=== PATIENT | male | born 1945 | race Caucasian/White ===

== ENCOUNTER 2022-09-10 08:33 | Emergency (ER) | payer OTHER, SELFPAY ==
[2022-09-10] VITALS (7 sets, daily range): BP systolic 155–180; BP diastolic 78–105; PULSE 71–76; RESP 18; TEMP 36.4; O2SAT 94–96; BMI 28.7
--- NOTE | 2022-09-10 09:34 | CRLHL7_ITS ---
For Patients: As a result of the Century Cures Act, medical imaging exams and procedure reports are released immediately into your electronic medical record. You may view this report before your referring provider. If you have questions, please contact your health care provider. INDICATION: Abdominal distension. TECHNIQUE: CT abdomen and pelvis acquired with 90 mL Isovue 370 IV contrast. COMPARISON: Abdomen radiograph earlier same day dated 09/10/2022. FINDINGS: Lower chest: Motion artifact. 0.4 cm pulmonary nodule in the right lower lobe (series 3, image 9). No focal consolidation. Liver: Diffuse hepatic steatosis. Hepatomegaly. Too small to characterize hypodense hepatic lesions in the right lobe, likely benign in the absence of a known malignancy. Gallbladder and bile ducts: Small gallstone at the gallbladder neck. No biliary duct dilation. Pancreas: Unremarkable. Spleen: Splenomegaly, spleen measures up to 15 cm in cranial caudal dimension. Adrenal glands: Adreniform thickening of the left adrenal gland. Unremarkable appearance of the right adrenal gland. Kidneys: Kidneys enhance symmetrically. Too small to characterize hypodense bilateral renal lesions. There is symmetric bilateral mild hydronephrosis and hydroureter, without calculi identified in the collecting systems. Bilateral perinephric stranding is also present. Retroperitoneum: No lymphadenopathy. Bowel and mesentery: Bowel is not obstructed. Scattered colonic diverticulosis, without evidence of acute diverticulitis. Normal appendix. No significant ascites. No pneumoperitoneum. Bladder: Distended with urine. TURP defect is noted. Reproductive organs: Severe prostatomegaly. Pelvic lymph nodes: No lymphadenopathy. Vessels: Mild atherosclerotic calcifications. Abdominal wall: No acute abdominal wall abnormality. Bones: Multilevel degenerative changes of the spine. No suspicious/aggressive focal osseous lesion. IMPRESSION: 1. Splenomegaly, spleen measures up to 15 cm. 2. Hepatomegaly and diffuse hepatic steatosis. 3. Mild bilateral hydronephrosis and hydroureter, without calculi identified in the renal collecting systems. This is likely secondary to reflux uropathy. 4. Severe prostatomegaly, resulting in significant distention of the urinary bladder. Recommend correlation with serum PSA. 5. Additional incidental findings including cholelithiasis, and 0.4 cm pulmonary nodule in the right lower lobe. Consider optional follow up CT chest in 12 months, per Fleischner guidelines. Please note that all CT scans at this facility use dose modulation, iterative reconstruction, and/or weight-based dosing when appropriate to reduce radiation dose to as low as reasonably achievable. Dictated by Yajaira Moore MD @ 09/10/2022 12:48:16 PM (Electronically Signed)
--- NOTE | 2022-09-10 09:35 | CRLHL7_ITS ---
For Patients: As a result of the Century Cures Act, medical imaging exams and procedure reports are released immediately into your electronic medical record. You may view this report before your referring provider. If you have questions, please contact your health care provider. Indication: Abdomen pain Technique: Abdomen 1 view. Comparison: None. Findings: Bowel: Bowel pattern is normal. The amount of colonic stool is within normal limits. Other: No sign of free air. Possible splenomegaly. No suspicious calcifications. Osseous structures are unremarkable for age. Impression: No bowel obstruction. Possible abnormal spleen. CT recommended. Dictated by Jim Bear MD @ 09/10/2022 10:27:42 AM (Electronically Signed)
[2022-09-10] MEDS: ONDANSETRON 2 MG/ML inj 4 MG IVP (09:47)
[2022-09-10] MEDS: HYDROmorphone 0.5 mg/0.5 ml inj IVP (09:47)
--- NOTE | 2022-09-10 09:47 | ED.ABDPAIN ---
HPI - Abdominal Pain General Date Seen: 09/10/22 Chief Complaint: Abdominal Pain Stated Complaint: Possible bowel obstruction Time Seen by Provider: 09/10/22 09:04 Source: patient History of Present Illness HPI narrative: Patient is a 76-year-old male who presents for evaluation of abdominal pain which started abruptly at 1:00 a.m.. He says initially he had explosive diarrhea which he says was yellowish in color, denies any bloody stools or melanotic stools. Now he is not having any output from below. He denies passing any gas. He has had nausea but no vomiting. He notes significant abdominal distention. He is worried about possible bowel obstruction. He has never had any abdominal surgery. He has no history of prior bowel obstruction. He denies fevers or urinary symptoms. He has not had chest pain or difficulty breathing. Pain is severe and diffuse, perhaps worse on the right than the left. He has a history of diabetes and hypertension. He does not take any blood thinners. He does not smoke or drink. Here today with his Related Data Home Medications Medication Instructions Recorded Confirmed doxazosin 4 mg tablet mg 09/10/22 lisinopril 20 tab 09/10/22 mg-hydrochlorothiazide 25 mg tablet metformin 500 mg tablet,extended mg PO 09/10/22 release 24 hr omeprazole 20 mg capsule,delayed mg 09/10/22 release Allergies Allergy/AdvReac Type Severity Reaction Status Date / Time No Known Drug Allergies Allergy Verified 09/10/22 08:48 Review of Systems Status of ROS Reports: 10 or more systems reviewed and unremarkable except as noted in History and below PFSH PFS Social History Smoking Status: Never smoker Do you use any of these nicotine containing products: None How often do you have a drink containing alcohol: never AUDIT-C Alcohol total score: 0 Non-prescribed substance use: denies use Exam Narrative: Exam Narrative: Vital signs as noted above. In general, an alert, elderly male who appears to be in significant pain. Head: Normocephalic, atraumatic. Eyes: Pupils are equal reactive. Extraocular movements are full. Conjunctivae are normal. ENT: Mucous membranes are moist. Throat is normal. Neck: Supple without lymphadenopathy. Heart: Regular rate and rhythm. No murmur or rub. Lungs: Clear bilaterally. No increased work of breathing, crackles or wheezes. Abdomen: Distended, diffusely significantly tender although no guarding or rigidity. Bowel sounds are quiet. Extremities: Well perfused. No edema. No calf tenderness. Pulses intact. Neurologic: Patient is alert and oriented to person and place. Speech is fluent. Face is symmetric. Moves all extremities equally. Affect: Normal. Skin: Warm and dry. Well perfused. Const: Vital Signs, click to edit/add: Vital Signs - 24 hr 09/10/22 08:43 09/10/22 08:39 09/10/22 09:39 Temperature 97.5 F L 97.5 F L Pulse Rate Pulse Rate [Right Pulse Oximeter] 74 74 Respiratory Rate 18 18 Blood Pressure Blood Pressure [Ri ght Upper Arm] 180/105 H 180/105 H 176/104 H Pulse Oximetry 94 94 Oxygen Delivery Me thod Room Air Room Air 09/10/22 10:27 09/10/22 10:28 09/10/22 10:30 Temperature Pulse Rate 72 71 71 Pulse Rate [Right Pulse Oximeter] Respiratory Rate Blood Pressure 169/82 H Blood Pressure [Ri ght Upper Arm] Pulse Oximetry 95 96 96 Oxygen Delivery Me thod 09/10/22 10:31 Temperature Pulse Rate 76 Pulse Rate [Right Pulse Oximeter] Respiratory Rate Blood Pressure 155/78 H Blood Pressure [Ri ght Upper Arm] Pulse Oximetry 95 Oxygen Delivery Me thod Documenting provider has reviewed patient's vital signs: yes Course Course Hospital Course: Following my evaluation, an IV was placed and he was given 0.5 mg of Dilaudid as well as a L normal saline and 4 mg of Zofran. I did an initial flat and decubitus abdominal film primarily to make sure there is no evidence of free air and to see if there was evidence of bowel obstruction although without any history of prior abdominal surgery this was somewhat lower on my list unless he had a volvulus or something along those lines. My review of the abdominal films showed no evidence of bowel obstruction and no free air. The final radiology report was likewise negative aside from a possibly enlarged spleen. CT was recommended. His labs overall were normal, CBC was normal, hemoglobin was 14.3. His gas showed a pH of 7.6, I think due to hyperventilation with the pCO2 of 22. Lactate was 2.2, minimally elevated. Metabolic panel showed a sodium of 134 and a potassium of 3.1, chloride of 98 and carbon dioxide of 19. And a creatinine were 23 and 1.3. Glucose elevated at 228. LFTs were normal, CRP was less than 0.5. Lipase was 55. Urinalysis ultimately was negative. He went on to have a CT scan of the abdomen which the tech called me in to review. Patient had a markedly distended bladder as well as hydronephrosis bilaterally likely secondary to urinary retention. We placed a Singh, he had a L of clear urine out. He had relief of his abdominal pain. Following neck, he did tell me that he actually has had problems with urinary retention in the past, he has a significantly enlarged prostate and has had to have a Singh catheter placed in the past due to urinary retention. He did not provide this history until after the CT scan. Once the Singh was placed, he became insistent that he wanted to leave. I did ask him to wait until the radiologist had read his CT scan to make sure that we had all of the findings reviewed. Likewise, I told him that I wanted to make sure we had a plan to have him follow up with Urology as the catheter needs to be addressed as does his prostate. However, the nurse told me that he ultimately left once he has leg bag in place, he refused to stay further to talk to me or to wait for further instructions. I will send him the results of his CT scan by letter, as he does have incidental findings such as splenomegaly. He should be followed up with his primary doctor. Vital Signs Vital signs: Initial Vital Signs Temperature 97.5 F L 09/10/22 08:39 Temperature Source Temporal Artery Scan 09/10/22 08:39 Pulse Rate 74 09/10/22 08:39 Respiratory Rate 18 09/10/22 08:39 Blood Pressure 180/105 H 09/10/22 08:39 Blood Pressure Mean 130 09/10/22 08:39 Blood Pressure Position Sitting 09/10/22 08:39 Pulse Oximetry 94 09/10/22 08:39 Oxygen Delivery Method 09/10/22 08:39 Vital Signs Temperature 97.5 F L 09/10/22 08:39 Pulse Rate 74 09/10/22 08:39 Respiratory Rate 18 09/10/22 08:39 Blood Pressure 180/105 H 09/10/22 08:39 Pulse Oximetry 94 09/10/22 08:39 Oxygen Delivery Method 09/10/22 08:39 Temperature 97.5 F L 09/10/22 08:43 Pulse Rate 76 09/10/22 10:31 Respiratory Rate 18 09/10/22 08:43 Blood Pressure 155/78 H 09/10/22 10:31 Pulse Oximetry 95 09/10/22 10:31 Oxygen Delivery Method 09/10/22 08:43 MDM - Abdominal Pain Lab Data Labs: Lab Results 09/10/22 09/10/22 09/10/22 Range/Units 09:41 09:41 09:41 WBC 6.54 (4.50-11.00) K/uL RBC 5.02 (4.30-5.90) m/uL Hgb 14.3 (13.5-17.5) gm/dL Hct 41.3 (37.0-53.0) % MCV 82 (80-100) fL MCH 29 (26-34) pg MCHC 35 (32-36) gm/dL RDW Coeff of Swapnil 13.5 (11.5-15.5) % Plt Count 174 (140-440) K/uL Neut % (Auto) 78.3 H (42.0-72.0) % Lymph % (Auto) 11.6 L (20-44) % Traverse % (Auto) 8.7 (0.0-11.0) % Eos % (Auto) 0.6 (0.0-7.0) % Baso % (Auto) 0.5 (0.0-3.0) % Neut # (Auto) 5.10 (1.7-7.0) K/uL Lymph # (Auto) 0.80 L (0.90-2.90) K/uL Traverse # (Auto) 0.60 (0.00-0.90) K/UL Eos # (Auto) 0.04 (0.00-0.50) K/uL Baso # (Auto) 0.03 (0.00-0.30) K/uL Abs Immat Gran (auto) 0.02 (0.00-0.30) K/uL Imm/Tot Granulo (auto) 0.3 % VBG pH 7.604 H* (7.32-7.43) VBG pCO2 22 L (40-50) mmHG VBG pO2 54.6 H (25-47) mmHG VBG HCO3 22 (21-28) mmol/L Sodium 134 L (135-149) mmol/L Potassium 3.1 L (3.6-5.1) mmol/L Chloride 98 (96-114) mmol/L Carbon Dioxide 19 L (20-32) mmol/L BUN 23 (7-30) mg/dL Creatinine 1.3 (0.5-1.5) mg/dL Estimated Creat Clear 44.49 Estimated GFR 57 ml/min Glucose 228 H (60-115) mg/dL Lactate 2.2 H (0.5-1.9) mmol/L Calcium 9.1 (8.4-10.6) mg/dL Magnesium 1.5 (1.5-2.6) mg/dL Total Bilirubin 0.8 (0.1-1.5) mg/dL Direct Bilirubin 0.0 (0.0-0.5) mg/dL AST 22 (12-35) U/L ALT 21 (4-50) U/L Alkaline Phosphatase 126 (40-150) U/L C-Reactive Protein < 0.5 L (0.5-1.0) mg/dL Total Protein 7.0 (6.0-8.3) g/dL Albumin 4.6 (3.3-5.0) g/dL Lipase 55 (23-300) U/L Urine Color (Yellow) Urine Appearance (Clear) Urine pH (5.0-8.5) Ur Specific Wing[place] (1.000-1.030) Urine Protein (Negative) Urine Glucose (UA) (Negative) Urine Ketones (Negative) Urine Blood (Negative) Urine Nitrite (Negative) Urine Bilirubin (Negative) Urine Urobilinogen (0.2-1.0) Ur Leukocyte Esterase (Negative) Urine RBC (0-2) Urine WBC (0-5) Ur Squamous Epith Cells (None-Few) Urine Bacteria (None) SARS-CoV-2 (PCR) (Negative) 09/10/22 09/10/22 Range/Units 09:41 11:45 WBC (4.50-11.00) K/uL RBC (4.30-5.90) m/uL Hgb (13.5-17.5) gm/dL Hct (37.0-53.0) % MCV (80-100) fL MCH (26-34) pg MCHC (32-36) gm/dL RDW Coeff of Swapnil (11.5-15.5) % Plt Count (140-440) K/uL Neut % (Auto) (42.0-72.0) % Lymph % (Auto) (20-44) % Traverse % (Auto) (0.0-11.0) % Eos % (Auto) (0.0-7.0) % Baso % (Auto) (0.0-3.0) % Neut # (Auto) (1.7-7.0) K/uL Lymph # (Auto) (0.90-2.90) K/uL Traverse # (Auto) (0.00-0.90) K/UL Eos # (Auto) (0.00-0.50) K/uL Baso # (Auto) (0.00-0.30) K/uL Abs Immat Gran (auto) (0.00-0.30) K/uL Imm/Tot Granulo (auto) % VBG pH (7.32-7.43) VBG pCO2 (40-50) mmHG VBG pO2 (25-47) mmHG VBG HCO3 (21-28) mmol/L Sodium (135-149) mmol/L Potassium (3.6-5.1) mmol/L Chloride (96-114) mmol/L Carbon Dioxide (20-32) mmol/L BUN (7-30) mg/dL Creatinine (0.5-1.5) mg/dL Estimated Creat Clear Estimated GFR ml/min Glucose (60-115) mg/dL Lactate (0.5-1.9) mmol/L Calcium (8.4-10.6) mg/dL Magnesium (1.5-2.6) mg/dL Total Bilirubin (0.1-1.5) mg/dL Direct Bilirubin (0.0-0.5) mg/dL AST (12-35) U/L ALT (4-50) U/L Alkaline Phosphatase (40-150) U/L C-Reactive Protein (0.5-1.0) mg/dL Total Protein (6.0-8.3) g/dL Albumin (3.3-5.0) g/dL Lipase (23-300) U/L Urine Color Yellow (Yellow) Urine Appearance Slightly Cloudy A (Clear) Urine pH 5.0 (5.0-8.5) Ur Specific [place] 1.015 (1.000-1.030) Urine Protein Trace A (Negative) Urine Glucose (UA) 3+ A (Negative) Urine Ketones Negative (Negative) Urine Blood 1+ A (Negative) Urine Nitrite Negative (Negative) Urine Bilirubin Negative (Negative) Urine Urobilinogen 0.2 (0.2-1.0) Ur Leukocyte Esterase Negative (Negative) Urine RBC 0-2 (0-2) Urine WBC 2-5 (0-5) Ur Squamous Epith Cells None (None-Few) Urine Bacteria None (None) SARS-CoV-2 (PCR) Negative SARS-CoV-2 (Negative) Discharge Plan Discharge Prescriptions: No Action omeprazole 20 mg capsule,delayed release(DR/EC) doxazosin 4 mg tablet lisinopril-hydrochlorothiazide 20-25 mg tablet metformin 500 mg tablet extended release 24 hr PO Follow Up/Referrals: Neptali Cevallos MD [Primary Care Provider] -
[2022-09-10] MEDS: 0.9 % SODIUM CHLORIDE 1000 ml 1,000 ML IV (09:48)
[2022-09-10 09:50] LABS: HCO3 VBG 22 mmol/L (21-28); Lactate* 2.2 mmol/L (0.5-1.9); PCO2 VBG 22 mmHG (40-50); PO2 VBG 54.6 mmHG (25-47); pH VBG 7.604 (7.32-7.43)
[2022-09-10 09:56] LABS: Basophils Absolute Auto 0.03 K/uL (0.00-0.30); Basophils Percent Auto 0.5 % (0.0-3.0); Eosinophils Absolute Auto 0.04 K/uL (0.00-0.50); Eosinophils Percent Auto 0.6 % (0.0-7.0); Hematocrit 41.3 % (37.0-53.0); Hemoglobin* 14.3 gm/dL (13.5-17.5); Immature Granulocytes Abs Auto 0.02 K/uL (0.00-0.30); Immature Granulocytes Pct Auto 0.3 %; Lymphocytes Percent Auto 11.6 % (20-44); Mean Corpuscular HGB Conc 35 gm/dL (32-36); Mean Corpuscular Hemoglobin 29 pg (26-34); Mean Corpuscular Volume 82 fL (80-100); Monocytes Percent Auto 8.7 % (0.0-11.0); Neutrophils Percent Auto 78.3 % (42.0-72.0); Platelet Count* 174 K/uL (140-440); RDW Coefficient of Variation % 13.5 % (11.5-15.5); Red Blood Count 5.02 m/uL (4.30-5.90); White Blood Count* 6.54 K/uL (4.50-11.00)
[2022-09-10 09:59] LABS: Slide Review Reflex No
[2022-09-10 10:09] LABS: Chloride* 98 mmol/L (96-114)
[2022-09-10 10:10] LABS: Albumin* 4.6 g/dL (3.3-5.0); Sodium* 134 mmol/L (135-149)
[2022-09-10 10:11] LABS: Potassium* 3.1 mmol/L (3.6-5.1)
[2022-09-10 10:13] LABS: Creatinine* 1.3 mg/dL (0.5-1.5); Est. Creatinine Clearance* 44.49; Estimated Glomerular Filt Rate 57 ml/min
[2022-09-10 10:14] LABS: Alanine Aminotransferase* 21 U/L (4-50); Alkaline Phosphatase* 126 U/L (40-150); Aspartate Amino Transferase* 22 U/L (12-35); Bilirubin Total* 0.8 mg/dL (0.1-1.5); Blood Urea Nitrogen* 23 mg/dL (7-30); Calcium* 9.1 mg/dL (8.4-10.6); Carbon Dioxide* 19 mmol/L (20-32); Glucose* 228 mg/dL (60-115); Lipase* 55 U/L (23-300); Magnesium* 1.5 mg/dL (1.5-2.6)
[2022-09-10 10:17] LABS: C Reactive Protein* < 0.5 mg/dL (0.5-1.0)
--- OUTSIDE RECORDS SUMMARY | 2022-09-10 10:21 | XMS_ITS | Clinical Summary ---
:1945 Author Organization [facility] [place] [address] Care Team Providers Name Role Phone Neptali Cevallos MD Primary Care Provider [phone] Allergies Active Allergy Reactions Severity Noted Date Comments Adhesive Tape 01/11/2007 takes skin off Amlodipine 11/18/2010 edema Labetalol Other - Describe In 08/11/2014 bladder cramps Comment Field Mustard Other - Describe In 03/15/2015 Diarrhea , bloating, gas, Comment Field blood in urine . Pollen Extracts Runny Nose, Other - Medium 04/22/2021 Speec h disturbances and Describe In Comment sneezing Field Medications Medication Sig Dispensed Refills Start Date End Date Status acetaminophen SR 0 11/08/2017 Ac tive (TYLENOL ARTHRITIS PAIN) 650 mg Extended-Release tablet cholecalciferol Take 1 tablet by 0 03/27/2019 Active (VITAMIN D) 1,000 unit mouth 2 times tablet daily. turmeric root extract Take by mouth 2 0 03/27/2019 Active 500 mg cap times daily. vit Take 1 capsule 0 03/27/2019 Acti ve C,F-Yq-xdifs-lutein-ze by mouth 2 times axan (PRESERVISION daily. AREDS-2) capsule medication order Bard 14 Fr. 150 Each 11 09/05/2019 Active composerIndications: Urological Chronic prostatitis Catheter Tiemann Model Coude Tip Ref # [id number], 5x/day as needed doxazosin (CARDURA) 4 Take 1 Tablet (4 90 tablet. 3 03/16/2022 Active mg tabletIndications: mg) by mouth at Essential hypertension bedtime. empagliflozin Take 1 Tablet 90 Tablet 1 03/16/2022 A ctive (JARDIANCE) 25 mg (25 mg) by mouth tabletIndications: once daily. Diabetes mellitus without complication (HC) glipiZIDE Take 1 Tablet 90 Tablet 1 03/16/2022 Activ e extended-release (10 mg) by mouth (GLUCOTROL XL) 10 mg once daily Extended-Release before a meal. tabletIndications: Diabetes mellitus without complication (HC) lisinopril-hydrochloro Take 1 Tablet by 90 Tablet 3 03/16/2022 Active thiazide, 20-25 mg, mouth once (PRINZIDE, ZESTORETIC) daily. 20-25 mg per tabletIndications: Essential hypertension metFORMIN (GLUCOPHAGE TAKE FOUR 360 tablet. 1 03/16/2022 Active XR) 500 mg TABLETS BY MOUTH Extended-Release EVERY DAY WITH tabletIndications: EVENING MEAL Diabetes mellitus without complication (HC) mirabegron Take 1 Tablet 90 Tablet 3 03/16/2022 Acti ve EXTENDED-release (50 mg) by mouth (Myrbetriq) 50 mg once daily. tabletIndications: Urinary frequency omeprazole (PRILOSEC) Take 1 Capsule 180 Capsule 3 03/16/2022 Active 20 mg Delayed-Release (20 mg) by mouth capsuleIndications: 2 times daily GERD without before meals. esophagitis potassium chloride Take 1 Tablet 90 Tablet 3 03/17/2022 Active (Klor-Con M20) 20 mEq (20 mEq) by Extended-Release mouth once daily tabletIndications: with a meal. Benign essential HTN Active Problems Problem Noted Date Overweight 03/17/2021 Proteinuria 01/05/2012 Type II or unspecified type diabetes mellitus without mention of 04/27/2008 complication, not stated as uncontrolled Esophageal reflux 01/05/2008 Chronic prostatitis 01/11/2007 Rheumatic fever without mention of heart involvement 0 01/11/2007 Unspecified essential hypertension 01/11/2007 Unspecified urinary incontinence 01/11/2007 Sensorineural hearing loss, unspecified 01/11/2007 Overview: hearing aid right ear Resolved Problems Problem Noted Date Resolved Date Proteinuria 08/03/2012 08/03/2012 Screen for colon cancer 11/13/2009 01/13/2018 Overview: Colonoscopy 11/2009 normal repeat in 10 y ears Hematuria 06/25/2009 05/20/2021 Other abnormal glucose 01/11/2007 01/13/2018 Encounters Date Type Specialty Care Team Description 07/30/2022 Telephone Neptali Cevallos MD Error-please disregard 07/28/2022 Refill Neptali Cevallos MD Refill Request (Doxazosin) from Last 3 Months Immunizations Name Administration Dates Next Due Amb Influenza, Inact (High-dose) (Flu 09/18/2016 Clinic Only) COVID-19 vaccine (Kamelio 03/16/2022 30mcg/0.3mL) 12YO+ SATISH-SUCROSE PF, MDV COVID-19 vaccine (Kamelio 08/20/2021, 01/31/2021, 30mcg/0.3mL) PF, MDV Influenza, High-dose Inactivated 09/02/2017, 09/18/2016, , 08/02/2014 Influenza, High-dose Quadrivalent 08/26/2020 Inactivated Influenza, IIV3 (Age 6-35 mos) 07/08/2011, 10/08/2009 Influenza, IIV3 (Age >=3 years) 08/11/2013, 08/03/2012, 06/10, 11/18/2010, 10/08/2009 Influenza, IIV4 08/10/2019 Influenza, Inactivated IIV3 (Age 65+ 08/10/2018 Years) Preserv Free Influenza,CCIIV4 PRESERV FREE 08/10/2019 Pneumococcal Poly,23-Valent 10/08/2009 (Pneumovax) Pneumococcal conj 13-Valent (Prevnar 08/23/2014 13) Td (Age >=7 Years) 07/30/2003 Tdap 04/22/2021, 07/08/2011 Zoster (Shingrix-RZV, recombinant) 07/30/2018, 04/01/2018 Zoster (Zostavax-ZVL, live) 04/05/2013 Family History Medical History Relation Name Comments Heart Disease Brother CAD ,CABG age 58 Cancer-prostate Father in his 50's Other Father macular degenera tion Asthma Mother in her 70's Other Mother of old age 93 Relation Name Status Comments Brother Father Alive Mother Alive Social History Tobacco Use Types Packs/Day Years Used Date Never Smoker Smokeless Tobacco: Never Used Tobacco Cessation: Counseling Given: Yes Alcohol Use Standard Drinks/Week Comments Not Currently 0 (1 standard drink = 0.6 oz pure alcoho l) occasional 1 beer per month Alcohol Habits Answer Date Recorded How often do you have a drink containing 2-4 times a month 03/27/2019 alcohol? How many drinks containing alcohol do you 1 or 2 03/27/2019 have on a typical day when you are drinking? How often do you have six or more drinks on Never 03/27/2019 one occasion? Comment: occasional 1 beer per month 06/07/2017 Sex Assigned at Date Recorded Male 05/16/2021 8:50 PM CDT Obstetrics History Last Filed Vital Signs Vital Sign Reading Time Taken Comments Blood Pressure 130/70 03/16/2022 8:17 AM CDT Pulse 81 03/16/2022 8:17 AM CDT Temperature 36.7 ??C (98.1 ??F) 03/15/2020 8:35 AM CDT Respiratory Rate 18 08/28/2019 11:57 AM CDT Oxygen Saturation 97% 03/16/2022 8:17 AM CDT Inhaled Oxygen Concentration - - Weight 85.7 kg (189 lb) 03/16/2022 8:17 AM CDT Height 170.2 cm (5' 7) 03/16/2022 8:17 AM CDT Body Mass Index 29.6 03/16/2022 8:17 AM CDT Plan of Treatment Health Maintenance Due Date Last Done Comments Hepatitis C screening for age 1109/16/1963 18-79 COVID-19 vaccine series (5 - 05/11/2022 03/16/2022, 021, Booster for Pfizer series) 01/31/2021, Additiona l history exists Depression screening for age 12+ 05/20/2022 05/20/2021, 06/2020, 09/18/2019, Additional history exists Medicare Wellness for age 65+ 05/20/2022 05/20/2021, 2019 Influenza for age 65+ 07/09/2022 08/26/2020, 08/10/2019, 08/10/2019, Additional history exists BMI (ht and wt on same day) for 03/16/2023 03/16/2022, 07/2021, age 18+ 05/20/2021, Additional history exists Tetanus booster 04/22/2031 04/22/2021, 07/08/2011, 07/30/2003 Pneumococcal series for age 65+ Completed 08/23/2014, 11/2008 Zoster (shingles) series for age Completed 07/30/2018, , 50+ 04/05/2013 Tdap Completed 04/22/2021, 07/08/2011 Results Not on filefrom Last 3 Months Insurance Payer Benefit Plan / Subscriber ID Effective Dates Phone Addre ss Type Group [employer] G[employer] MR [employer] CHOICE [id number] 2020-Present [address] [address] [place] [address] Care Teams Senior Solutions Architect Relationship Specialty Start Date End Date Neptali Cevallos MD PCP - General 03/23/06 [address] [place] [address]
--- OUTSIDE RECORDS SUMMARY | 2022-09-10 10:22 | XMS_ITS | Continuity of Care Document ---
:[address] [facility] Care Team Providers Name Role Phone [facility] Unavailable Unavailable Problems Combined list of problems from Department of [facility] and Veterans Affairs facilities. It does not include entries that were removed or entered in error. 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[facility] degeneration HCS Chronic prostatitis Active Condition [facility] HCS Diabetes Mellitus Active Condition [facility] Type 2 ([facility] [id number]) GERD - Active Condition [facility] Gastro-Esophageal HC S Reflux Disease ([facility] [id number]) H/O: rheumatic fever Active Condition [facility] HCS HTN - Hypertension Active Condition [facility] ([facility] [id number]) HCS Diagnosis: ICD-10-CM Active Diagnosis [facility] E11.9 Type 2 HCS diabetes mellitus without complicationswith Provider Comments: Diabetes Mellitus Type 2 ([facility] [id number]) Diagnosis: ICD-10-CM Active Diagnosis [facility] Z23 Encounter for HC S immunizationwith Provider Comments: Encounter for Immunization Medications Combined list of outpatient medications from Department of Defense and Veterans Affairs facilities. Medications provided include 1) outpatient medications from the last 15 months, and 2) patient-reported medications. Medication Details Route Status Patient Prescription Prescription Last Ordering Order Source Instructions Expires Number Dispense Provider Date Date ACETAMINOPH TAKE TWO ORALLY ACTIVE FR[place]LAN, 04/22 / [place] EN 325MG TABLETS 2020 [facility] TAB BY MOUTH M HCS TWICE A DAY NEEDED CHOLECALCIF TAKE TWO ORALLY ACTIVE FROYLAN, 04/22 / [place] CLEMENTINA 10MCG TABLETS 2020 [facility] VA (400UNIT) BY MOUTH M HCS TAB EVERY DAY DOXAZOSIN TAKE ONE ORALLY ACTIVE 08/01/2023 [id number] MOO RHEAD, 08/04/ [place] MESYLATE TABLET 2 2021 [facility] [facility] A 4MG TAB BY MOUTH M HCS AT BEDTIME DOXAZOSIN TAKE ORALLY DISCONT 04/25/2023 [id number] MOORHEA D, 04/28/ [place] MESYLATE ONE-HALF INUED 2 2021 [place] [facility] 8MG TAB TABLET M HCS BY MOUTH AT BEDTIME DOXAZOSIN TAKE ORALLY ACTIVE [place]AN, 04/22/ [place] MESYLATE ONE-HALF 2020 [place] [facility] 8MG TAB TABLET M HCS BY MOUTH AT BEDTIME EMPAGLIFLOZ TAKE ONE ORALLY ACTIVE 04/25/2023 [id number] M OORHEAD, 04/28/ [place] IN 25MG TAB TABLET 2 2021 [facility] BY MOUTH M HCS EVERY DAY FOR DIABETES EMPAGLIFLOZ TAKE ORALLY DISCONT 05/15/2022 [id number] MOORH EAD, 05/15/ [place] IN 25MG TAB ONE-HALF INUED 2 2020 O [place] VA TABLET (EDIT) M HCS BY MOUTH EVERY DAY FOR DIABETES GLIPIZIDE TAKE ONE ORALLY ACTIVE 08/20/2023 [id number] MO ORHEAD, 08/20/ [place] 10MG TAB,SA TABLET 2 2021 [facility] BY MOUTH M [facility] EVERY DAY GLIPIZIDE TAKE ONE ORALLY DISCONT 07/24/2022 [id number] MO ORHEAD, 07/23/ [place] 10MG TAB,SA TABLET INUED 2 2020 [facility] BY MOUTH M HCS EVERY DAY GLIPIZIDE TAKE ONE ORALLY ACTIVE FROYLAN, 04/22/ [place] 5MG TAB,SA TABLET 2020 [place] [facility] BY MOUTH M HCS EVERY DAY GLUCOMANNAN TAKE 1 ORALLY ACTIVE FROYLAN, 04/22/ [place] CAP/TAB CAP/TAB 2020 [place] [facility] A BY MOUTH M HCS EVERY DAY HYDROCHLORO TAKE ONE ORALLY ACTIVE FROYLAN, 04/22 / [place] THIAZIDE TABLET 2020 [place] [facility] A 12.5MG/OL[place]IA BY MOUTH M HCS NOPRIL 10MG TAB HYDROCHLORO TAKE 1 ORALLY ACTIVE 04/25/2023 [id number] MOO RHEAD, 04/28/ [place] THIAZIDE TABLET 2 2021 [place] [facility] A 25MG/LIS[place] BY MOUTH M HCS PRIL 20MG EVERY TAB DAY MAGNESIUM TAKE ONE ORALLY ACTIVE 05/16/2023 [id number] MO ORHEAD, 05/19/ [place] OXIDE 420MG TABLET 2 2021 [facility] TAB BY MOUTH M HCS TWICE A DAY MAGNESIUM TAKE ONE ORALLY DISCONT 08/01/2022 [id number] MO ORHEAD, 08/01/ [place] OXIDE 420MG TABLET INUED 2 2020 [facility] TAB BY MOUTH M HCS TWICE A DAY METFORMIN TAKE ORALLY ACTIVE 04/25/2023 [id number] FROYLAN , 04/28/ [place] HCL 500MG FOUR 2021 [place] [facility] A 24HR TAB,SA TABLETS M HCS BY MOUTH AT BEDTIME METFORMIN TAKE ORALLY ACTIVE FR[place]LAN, 04/22/ [place] HCL 500MG FOUR 2020 [place] A 24HR TAB,SA TABLETS M HCS BY MOUTH EVERY DAY MIRABEGRON TAKE ONE ORALLY ACTIVE FROYLAN, 04/22/ [place] 50MG TAB,SA TABLET 2020 [facility] BY MOUTH M HCS EVERY DAY OMEPRAZOLE TAKE ONE ORALLY DISCONT 04/25/2023 [id number] M O[place]HEAD, 04/28/ [place] 20MG CAP,EC CAPSULE INUED 2021 [facility] BY MOUTH M HCS TWICE A DAY ON AN EMPTY STOMACH, AT LEAST 30 MINUTES PRIOR TO A MEAL OMEPRAZOLE TAKE 1 ORALLY ACTIVE [place]LAN, 04/22/ [place] 20MG CAP,EC CAPSULE 2020 [place] [facility] BY MOUTH M HCS TWICE A DAY POTASSIUM TAKE ONE ORALLY DISCONT 04/25/2023 [id number] MO ORHEAD, 04/28/ [place] CHLORIDE TABLET INUED 2021 [place] [facility] A 20MEQ BY MOUTH M HCS TAB,SA EVERY (DISPERSIBL DAY E) POTASSIUM TAKE ONE ORALLY ACTIVE FROYLAN, 07/31/ [place] CHLORIDE TABLET 2020 [place] [facility] A 20MEQ BY MOUTH M HCS TAB,SA (DISPERSIBL E) Allergies, Adverse Reactions, Alerts Combined list of allergies from Department of Defense and Veterans Affairs facilities. It does not include entries that were removed or entered in error. Substance Category Reaction Severity Reaction Status Date Comments S ource type Reported ADHESIVE Propensity Skin MODERATE Propensity active [place] TAPE to adverse irritation, to adverse 1 [place] VA reaction Skin ulcer reaction HCS (finding) (finding) MUSTARD Propensity Urinary SEVERE Propensity active [place] to adverse tract to adverse 1 LI S VA reactions infectious reactions H CS to food disease to food (finding) (finding) POLLEN Propensity Sneezing, MODERATE Propensity active [place] to adverse Disturbance to adverse 1 [place] [facility] reaction in speech reaction HCS (finding) (finding) Immunizations Combined list of available immunizations from the Department of Defense and Veterans Affairs facilities. Immunization Series Date Administered Site Reaction Lot CVX Drug St atus Comments Source Given By Number Code Hand Mixer PNEUMOCOCCAL complet [place] CONJUGATE 2021 ed [place] [facility] PCV20, HCS POLYSACCHARID E IUD004 CONJUGATE, ADJUVANT, PF COVID-19 4 complet [place] [facility] ([facility]), 2021 ed HEAL TH MRNA, LNP-S, PF, 30 MCG/0.3 ML DOSE, SATISH-SUCROSE (AGES 12+ YEARS) COVID-19 3 complet PFR; [place] ([facility]), 2020 ed [id number]; [place] [facility] MRNA, LNP-S, 02 HCS PF, 30 1 MCG/0.3 ML DOSE INFLUENZA, complet [place] INJECTABLE, 2020 ed [place] [facility] QUADRIVALENT, HCS PRESERVATIVE FREE TDAP complet [place] 2020 ed [place] [facility] HCS COVID-19 2 complet PFR; [place] ([facility]), 2020 ed [id number]; [place] [facility] MRNA, LNP-S, 02 HCS PF, 30 1 MCG/0.3 ML DOSE COVID-19 1 complet PFR; [place] ([facility]), 2020 ed [id number]; [place] [facility] MRNA, LNP-S, 02 HCS PF, 30 1 MCG/0.3 ML DOSE INFLUENZA, complet [place] UNSPECIFIED 2019 ed HE ALTH FORMULATION ZOSTER 2 complet per MIIC A [place] RECOMBINANT 2017 ed HE ALTH ZOSTER 1 complet Miic RADHA NA RECOMBINANT 2018 ed HE ALTH PNEUMOCOCCAL complet [place] POLYSACCHARID 2009 ed HEALTH E PPV23 Results Combined list of recent chemistry, hematology and other laboratory results from Department of Defense and Veterans Affairs, ranging from 15 months to all on record, depending upon the facility. Order Results Value Reference Date Interpretation Specimen Commen ts Source Name Range BASIC CREATININE 0.9 0.7 - 1.2 08/20 Specimen Ty pe: PLASMA [place] METABOLI [MASS/VOLU /2020 No comment e ntered. IS [facility] C ME] IN Ordering Provid er: GREGG GALEANO PANEL+MG SERUM OR Report Releas ed Date/Time: Jul 31, 2021 10:07 AM PLASMA Reporting Lab: [facility] [place] [address] Performing Lab: [facility] [address] [place] [place] [address] BASIC UREA 14 8 - 26 08/20 Specimen Type: P LASMA [place] METABOLI No comment ent ered. IS [facility] C [MASS/VOLU Ordering Pro vider: GREGG GALEANO M PANEL+MG ME] IN Report Release d Date/Time: Jul 31, 2021 10:07 AM SERUM OR Reporting Lab: [facility] PLASMA [place] [address] Performing Lab: [facility] [place] [address] BASIC GLUCOSE 122 74 - 100 10 H Specimen Type: PLASMA [place] METABOLI [MASS/VOLU /2020 No comment e ntered. IS [facility] ME] IN Ordering Provid er: GREGG GALEANO M PANEL+MG SERUM OR Report Releas ed Date/Time: Jul 31, 2021 10:07 AM PLASMA Reporting Lab: [facility] [place] [address] Performing Lab: [facility] [place] [address] BASIC SODIUM 140 136 - 145 08/20 Specimen Type: PLASMA [place] METABOLI [MOLES/VOL /2020 No comment e ntered. [facility] UME] IN Ordering Provid er: GREGG GALEANO M PANEL+MG SERUM OR Report Releas ed Date/Time: Jul 31, 2021 10:07 AM PLASMA Reporting Lab: [facility] [address] [place] [address] Performing Lab: [facility] [address] [place] [address] BASIC POTASSIUM 3.5 3.5 - 5.1 08/20 Specimen Typ e: PLASMA [place] METABOLI [MOLES/VOL /2020 No comment e ntered. IS [facility] UME] IN Ordering Provid er: FROYLANDEEGREGG M PANEL+MG SERUM OR Report Releas ed Date/Time: Jul 31, 2021 10:07 AM PLASMA Reporting Lab: [facility] [address] [place] [facility] [address] Performing Lab: [facility] [address] [place] [facility] [address] BASIC CHLORIDE 103 98 - 107 08/20 Specimen Type: PLASMA [place] METABOLI [MOLES/VOL /2020 No comment e ntered. IS [facility] UME] IN Ordering Provid er: FROYLANDEEGREGG M PANEL+MG SERUM OR Report Releas ed Date/Time: Jul 31, 2021 10:07 AM PLASMA Reporting Lab: [facility] [address] [place] [facility] [address] Performing Lab: [facility] [address] [place] [facility] [address] BASIC CARBON 26 22 - 29 08/20 Specimen Type: P LASMA [place] METABOLI DIOXIDE, /2020 No comment ent ered. IS [facility] C TOTAL Ordering Provid er: FROYLANDEEGREGG M PANEL+MG [MOLES/VOL Report Rele ased Date/Time: Jul 31, 2021 10:07 AM UME] IN Reporting Lab: [facility] SERUM OR [address] [place] [facility] [address] PLASMA Performing Lab: [facility] [address] [place] [facility] [address] BASIC CALCIUM 9.2 8.4 - 10.2 08/20 Specimen Type : PLASMA [place] METABOLI [MASS/VOLU /2020 No comment e ntered. IS [facility] ME] IN Ordering Provid er: FROYLANCYRILGREGG M PANEL+MG SERUM OR Report Releas ed Date/Time: Jul 31, 2021 10:07 AM PLASMA Reporting Lab: [facility] [address] [place] [facility] [address] Performing Lab: [facility] [address] BASIC MAGNESIUM 1.6 1.6 - 2.6 08/20 Specimen Typ e: PLASMA [place] METABOLI [MASS/VOLU /2020 No comment e ntered. IS [facility] ME] IN Ordering Provid er: GREGG GALEANO PANEL+MG SERUM OR Report Releas ed Date/Time: Jul 31, 2021 10:07 AM PLASMA Reporting Lab: [facility] [place] [address] Performing Lab: [facility] [address] [place] [facility] [address] BASIC ANION GAP 11 5 - 15 08/20 Specimen Type: PLASMA [place] METABOLI IN SERUM /2020 No comment ent ered. IS [facility] C OR PLASMA Ordering Prov ider: GREGG GALEANO PANEL+MG Report Release d Date/Time: Jul 31, 2021 10:07 AM Reporting Lab: [facility] [address] [place] [facility] [address] Performing Lab: [facility] [address] [place] [facility] [address] BASIC GLOMERULAR 82 60 08/20 Specimen Type : PLASMA [place] METABOLI FILTRATION /2020 No comment e ntered. [facility] RATE/1.73 Ordering Prov ider: GREGG GALEANO PANEL+MG SQ Report Release d Date/Time: Jul 31, 2021 10:07 AM M.PREDICTE Reporting La b: [facility] D [VOLUME [address] [facility] [address] RATE/AREA] Performing L ab: [facility] IN SERUM, [address] [facility] [address] PLASMA OR BLOOD BY CREATININE -BASED FORMULA (CKD-EPI) BASIC CREATININE 1.0 0.7 - 1.2 07/30 Specimen Ty pe: PLASMA [place] METABOLI [MASS/VOLU /2020 No comment e ntered. [facility] ME] IN Ordering Provid er: GREGG GALEANO PANEL+MG SERUM OR Report Releas ed Date/Time: Jul 24, 2021 08:56 AM PLASMA Reporting Lab: [facility] [address] [place] [facility] [address] Performing Lab: [facility] [address] [place] [facility] [address] BASIC UREA 15 8 - 26 07/30 Specimen Type: P DARIAN [place] METABOLI No comment ent ered. IS [facility] C [MASS/VOLU Ordering Pro vider: GREGG GALEANO PANEL+MG ME] IN Report Release d Date/Time: Jul 24, 2021 08:56 AM SERUM OR Reporting Lab: [facility] PLASMA [address] [place] [facility] [address] Performing Lab: [facility] [place] [address] BASIC GLUCOSE 156 74 - 100 07/30 H Specimen Type: PLASMA [place] METABOLI [MASS/VOLU /2020 No comment e ntered. IS [facility] ME] IN Ordering Provid er: FROYLANGREGG Estrada PANEL+MG SERUM OR Report Releas ed Date/Time: Jul 24, 2021 08:56 AM PLASMA Reporting Lab: [facility] [place] [address] Performing Lab: [facility] [address] BASIC SODIUM 139 136 - 145 07/30 Specimen Type: PLASMA [place] METABOLI [MOLES/VOL No comment e ntered. IS [facility] UME] IN Ordering Provid er: FROYLANGREGG ANDREWS PANEL+MG SERUM OR Report Releas ed Date/Time: Jul 24, 2021 08:56 AM PLASMA Reporting Lab: [facility] [place] [address] Performing Lab: [facility] [place] [address] BASIC POTASSIUM 3.0 3.5 - 5.1 07/30 L Specimen Typ e: PLASMA [place] METABOLI [MOLES/VOL /2020 No comment e ntered. IS [facility] UME] IN Ordering Provid er: FROYLANGREGG ANDREWS M PANEL+MG SERUM OR Report Releas ed Date/Time: Jul 24, 2021 08:56 AM PLASMA Reporting Lab: [facility] [place] [address] Performing Lab: [facility] [address] BASIC CHLORIDE 101 98 - 107 07/30 Specimen Type: PLASMA [place] METABOLI [MOLES/VOL No comment e ntered. IS [facility] UME] IN Ordering Provid er: FROYLANGREGG ANDREWS M PANEL+MG SERUM OR Report Releas ed Date/Time: Jul 24, 2021 08:56 AM PLASMA Reporting Lab: [facility] [place] [address] Performing Lab: [facility] [address] [place] [address] BASIC CARBON 26 22 - 29 07/30 Specimen Type: P LASMA [place] METABOLI DIOXIDE, /2020 No comment ent ered. IS [facility] C TOTAL Ordering Provid er: FROYLANGREGG Estrada M PANEL+MG [MOLES/VOL Report Rele ased Date/Time: Jul 24, 2021 08:56 AM UME] IN Reporting Lab: [facility] SERUM OR ONE [facility] Sean [place] [facility] [address] PLASMA Performing Lab: [facility] [place] [address] BASIC CALCIUM 9.0 8.4 - 10.2 07/30 Specimen Type : PLASMA [place] METABOLI [MASS/VOLU /2020 No comment e ntered. IS [facility] C ME] IN Ordering Provid er: FROYLANALEXA EstradaTH M PANEL+MG SERUM OR Report Releas ed Date/Time: Jul 24, 2021 08:56 AM PLASMA Reporting Lab: [facility] [place] [address] Performing Lab: [facility] [place] [address] BASIC MAGNESIUM 1.4 1.6 - 2.6 07/30 L Specimen Typ e: PLASMA [place] METABOLI [MASS/VOLU /2020 No comment e ntered. IS [facility] ME] IN Ordering Provid er: FROYLANGREGG ANDREWS M PANEL+MG SERUM OR Report Releas ed Date/Time: Jul 24, 2021 08:56 AM PLASMA Reporting Lab: [facility] [address] [place] [facility] [address] Performing Lab: [facility] [address] [place] [facility] [address] BASIC ANION GAP 12 5 - 15 07/30 Specimen Type: PLASMA [place] METABOLI IN SERUM /2020 No comment ent ered. IS [facility] C OR PLASMA Ordering Prov ider: FROYLANALEXA EstradaTH M PANEL+MG Report Release d Date/Time: Jul 24, 2021 08:56 AM Reporting Lab: [facility] [address] [place] [facility] [address] Performing Lab: [facility] [address] [place] [facility] [address] BASIC GLOMERULAR 73 60 07/30 Specimen Type : PLASMA [place] METABOLI FILTRATION /2020 No comment e ntered. IS [facility] RATE/1.73 Ordering Prov ider: GREGG GALEANO PANEL+MG SQ Report Release d Date/Time: Jul 24, 2021 08:56 AM BELEN Reporting La b: [facility] D [VOLUME [facility] [address] RATE/AREA] Performing L ab: [facility] IN SERUM, [facility] [address] PLASMA OR BLOOD BY CREATININE -BASED FORMULA (CKD-EPI) HEMOGLOB HEMOGLOBIN 6.7 4.0 - 6.0 07/30 H Specimen T ype: BLOOD [place] IN A1C A1C/HEMOGL /2020 No comment en tered. IS [facility] OBIN.TOTAL Ordering Pro vider: GREGG GALEANO IN BLOOD Report Release d Date/Time: Jul 24, 2021 08:56 AM Reporting Lab: [facility] [address] [place] [facility] [address] Performing Lab: [facility] [address] [place] [facility] [address] OCCULT HEMOGLOBIN Negative 05/07 Specimen Typ e: FECES [place] BLOOD .GASTROINT /2020 No comment en tered. IS [facility] FIT X1 ESTINAL.LO Ordering Pro vider: GREGG GALEANO SCREEN WER Report Released Date/Time: Apr 24, 2021 11:53 AM [[place]] Reporting La b: [facility] IN STOOL [address] [facility] [address] BY Performing Lab: [facility] IMMUNOASSA ONE [facility] [address] Y --1ST SPECIMEN Vital Signs Combined list of inpatient and outpatient Vital Signs from Department of Defense and Veterans Affairs, ranging from 12 months to all on record, depending upon the facility. Vital Sign Value Date Comments Source SYSTOLIC BLOOD PRESSURE 132 05/15/2022 11:19:58 [facility] DIASTOLIC BLOOD PRESSURE 74 05/15/2022 11:19:58 [facility] PULSE OXIMETRY 96% 05/15/2022 11:19:58 [facility] WEIGHT 187.6 05/15/2022 11:19:58 [place] [facility] BMI 29kg/m2 05/15/2022 11:19:58 [place] [facility] PAIN 0 05/15/2022 11:19:58 [place] [facility] TEMPERATURE 97.7 05/15/2022 11:19:58 [place] [facility] [facility] PULSE 93 05/15/2022 11:19:58 [place] [facility] RESPIRATION 18 05/15/2022 11:19:58 [place] [facility] Encounters Combined list of: 1) Encounters from Department of Veterans Affairs facilities going back up to the last 18 months. 2) Encounters from the Department of Defense facilities going back up to 280 months. Location Location Encounter Encounter Reason Attending ADM PR Stat us Disposition Source Details Type Number For Provider Date Date Visit Outpatient [id number] CARLOS BATISTA 03/17 [place] [id number] [facility] [id number] 04/22 [place] Encounter [id number] [facility] Outpatient [id number] 04/22 [place] [id number] [facility] [id number] Diagnos FROYLAN,E 04/22 [place] NEW LOW [id number] is: MARKEL IS [facility] 30-44 MIN ICD-10- HCS CM E11.9 Type 2 diabete s mellitu s without complic ations< br/>wit h Provide r Comment s: Diabete s Mellitu s Type 2 (SCT [id number] 6) Outpatient [id number] 04/22 [place] Encounter [id number] /2020 [place] [facility] Outpatient 47482-4.61 / [place] Encounter [id number] [facility] Outpatient [id number] FROYLAN,E 07/10 [place] Encounter [id number] MARKEL [facility] [facility] Outpatient [id number] 09/ [place] [id number] [facility] [place] [place] [address]-2.61 Diagnos ROSITA,STEP 07/23 [place] DIG [id number] is: HANIE [facility] ASSMT&MGMT ICD-10- HCS 5-10 CM E11.9 Type 2 diabete s mellitu s without complic ations< br/>wit h Provide r Comment s: Diabete s Mellitu s Type 2 (SCT [id number] 6) Outpatient [id number] Diagnos FROYLAN,E 07/31 [place] Encounter [id number] is: MARKEL [place] ICD-10- HCS CM E11.9 Type 2 diabete s mellitu s without complic ations< br/>wit h Provide r Comment s: Diabete s Mellitu s Type 2 (SCT [id number] 6) IMMUNIZATI 38854-6.61 Diagnos TRNLINA RAYA 08/20 [place] ON ADMIN [id number] is: KURT W [facility] V A ICD-10- HCS CM Z23 Encount er for immuniz ation<b r/>with Provide r Comment s: Encount er for Immuniz ation Outpatient [id number] 05 RADHA NA Encounter [id number] HEALT H 399 Outpatient [id number] 03/16 [place] Encounter [id number] /2021 [place] Outpatient [id number] 05/ [place] Encounter [id number] /2021 [facility] 64640-2.61 05 [place] Encounter [id number] /2021 [place] Outpatient [id number] 04/23 [place] Encounter [id number] /2021 [place] [facility] OFFICE O/P 62340-1.61 Diagnos FROYLAN,E 05/15 [place] EST MOD [id number] is: MARKEL [facility] 30-39 MIN ICD-10- HCS CM E11.9 Type 2 diabete s mellitu s without complic ations< br/>wit h Provide r Comment s: Diabete s Mellitu s Type 2 (SCT [id number] 6) Outpatient [id number] 05/25 [place] Encounter [id number] /2021 [facility] Outpatient [id number] 05/29 [place] Encounter [id number] [facility] Outpatient [id number] CHANTEL, 06/05 [place] Encounter [id number] AMITA A /2021 [facility] Outpatient [id number] 06/08 [place] Encounter [id number] [facility] Social History Combined list of available smoking, tobacco, and other social history from [facility] facilities. Social History Type Response Date Comment Source Tobacco smoking status [place]-TO[facility]AC[facility] NEVER USED 05/15/2022 [facility] NHIS History of tobacco use [place]-TOBAC[place] NEVER USED 04/22/2021 [facility]
--- OUTSIDE RECORDS SUMMARY | 2022-09-10 10:22 | XMS_ITS | Encounter Summary ---
:1945 Author Organization [facility] rs Address [address] [place] [address] Support Name Relationship Address Phone KYLEIGH FRIAS Unavailable [address] [facility] [place] [address] RADHA FRIAS Unavailable [address] [facility] [phone] [place] [address] Insurance Providers: All historical and current Section Date Range: From patient's date of to the date document was created.This section includes the names of all active insurance providers for the patient. Insurance Type of Plan Start of End of Group Member Insurance Policy P atient's Provider Coverage Name Policy Policy Number ID Provider's Anderson's Relationship Coverage Coverage Telephone Name to Policy Number Anderson HUMANA MCR MEDICARE MCR Nov 08, [id number] [phone] ANTHONY SHADSeanVerna PATIENT (WNR) ADVANTAGE (WNR) 2017 1 85 2 EITH MEDICARE MEDICARE PART Sep 08, PART A [id number] [address],K P ATIENT (WNR) (M) A 2008 [id number] [phone] EITH MEDICARE MEDICARE PART Sep 08, PART B [id number] [address],K P ATIENT (WNR) (M) B 2008 [id number] [phone] EITH Selected Encounter This section includes the information on record at [place] for the Encounter. Date/Time Encounter Type Encounter Description Reason Provider Source Apr 23, 2022 03:27 Outpatient Encounter TELEPHONE PRIMARY CARE IHE Encounter Template Text not used by [place] Plan of Treatment: Future Appointments (+ 6 months) and Future Tests (+/- 45 days) The Plan of Treatment section includes future care activities for the patient from all [place] treatmentfacilities. This section includes future appointments and future orders which are active, pending orscheduled.Future Appointments This section includes appointments that were scheduled to occur 6 months from the date of the Encounter, up to a maximum of 20 appointments. The data comes from all [place] treatment facilities. Appointment Date/Time Appointment Type Appointment Facili ty Name May 15, 2022 11:30 AM AMBULATORY - MEDICINE [facility] Jun 08, 2022 11:00 AM AMBULATORY - MEDICINE [facility] Social History: Smoking Status (Most current) and Tobacco Use (All prior to encounter date) This section includes the most current, and the historical, smoking and tobacco-related health factors from the [place] facility where the Encounter took place.Current Smoking Status This section includes the most current smoking, or tobacco-related health factor, from the [place] facility where the Encounter took place. Date/Time Current Smoking Status Comment Facility Apr 22, 2021 02:00 PM [facility]-TOBACCO NEVER US[facility] Encounter Notes: All associated encounter notes This section contains the clinical notes associated to the Encounter. Date/Time Encounter Note(s) Provider Source Apr 23, 2022 03:27 PM PRIMARY CARE NONVA NOTE: SANJIV RAZA [facility] LOCAL TITLE: CO-MANAGED CARE NOTE STANDARD TITLE: PRIMARY CARE NONVA NOTE DATE OF NOTE: APR 23, 2022@15:27 ENTRY DATE: APR 23, 2022@15:28:02 AUTHOR: SANJIV RAZA EXP COSIGNER: URGENCY: STATUS: COMPLETED CO-MANAGED CARE NOTE Has ADDENDA Received a request for: 1. Change- Empagliflozin 25 mg tablet; Take 1 tablet by mouth daily. 2. Potassium Chloride 20 mEq ER tablet; Take 1 tablet by mouth daily. With a meal. 3. Doxazosin 4 mg tablet; Take 1 tablet by mouth at bedtime. 4. Omeprazole 20 mg capsule; Take 1 capsule by mouth Twice a day. Before meal s. 5. Hydrochlorothiazide/Lisinopril 25-20 mg table t; Take 1 tablet by mouth daily. 6. Metformin 500 mg ER tablet; Take 4 tabs (2000 mg ER) by mouth every evening. With meal. 7. Mirabegron 50 mg ER tablet; Take 1 tablet by mouth daily. *Please place Ravinder diop Prior Auth consult for consideration of this request. Records scanned and available for review in [facility]. Rx written by: MD Neptali Cevallos Facility:[facility] Local provider phone #[phone] Local provider fax #[phone] Please alert me if med isn't approved or additio nal information is requested. If med is denied let me know what alternatives w ould be approved so I can communicate that information back to the local xu guerrero. /darby RAZA LPN Co-Assistant Spa Manager Signed: 04/23/2022 15:42 Receipt Acknowledged By: 04/24/2022 13:02 /darby GALEANO MD PHYSICIAN 04/24/2022 ADDENDUM STATUS: COMPLETED For mirabegron approval, will need docum entation from PCP regarding what other meds have been tried for overactive bladder or i f contraindiction to anticholinergics. /darby GALEANO MD PHYSICIAN Signed: 04/24/2022 13:03 Receipt Acknowledged By: 04/24/2022 15:12 /darby RAZA LPN Co-Assistant Spa Manager 04/24/2022 ADDENDUM STATUS: COMPLETED RightFax sent to MD Cevallos's office for review/ response to the above. Asked for additional clinical documentation -or- signed provider letter to be faxed to [facility] #[phone]. Will alert [facility] PCP once response obtained. ([employer]son for Use & PBM search link previously provided) /darby RAZA LPN Co-Assistant Spa Manager Signed: 04/24/2022 15:14
--- OUTSIDE RECORDS SUMMARY | 2022-09-10 10:22 | XMS_ITS | Encounter Summary ---
:1945 Author Organization [facility] rs Address [address] [place] [address] Support Name Relationship Address Phone KYLEIGH FRIAS Unavailable [address] [facility] [place] [address] RADHA FRIAS Unavailable [address] [facility] [phone] [place] [address] Insurance Providers: All historical and current Section [...] Anderson HUMANA MCR MEDICARE MCR Nov 08, [id number] [phone] ANTHONY Verna MESSER PATIENT (WNR) ADVANTAGE (WNR) 2017 1 85 2 EITH MEDICARE MEDICARE PART Sep 08, PART A [id number] [address],K P ATIENT (WNR) (M) A 2008 [id number] [phone] EITH MEDICARE MEDICARE PART Sep 08, PART B [id number] [address],K P ATIENT (WNR) (M) B 2008 [id number] [phone] EITH Selected Encounter This section includes the information on record at [place] for the Encounter. Date/Time Encounter Type Encounter Description Reason Provider Source March 17, 2022 09:32 Outpatient Encounter COMMUNITY CARE AM CONSULT IHE Encounter Template Text not used by [place] Plan of Treatment: Future Appointments (+ 6 months) and Future Tests (+/- 45 days) The Plan of Treatment section includes future care activities for the patient from all [place] treatmentfacilities. This section includes future appointments and future orders which are active, pending orscheduled.Future Appointments This section includes appointments that were scheduled to occur 6 months from the date of the Encounter, up to a maximum of 20 appointments. The data comes from all [place] treatment facilities. Appointment Date/Time Appointment Type Appointment Facili ty Name May 15, 2022 11:30 AM AMBULATORY - MEDICINE [facility] Jun 08, 2022 11:00 AM AMBULATORY - MEDICINE [facility] Social History: Smoking Status (Most current) and Tobacco Use (All prior to encounter date) This section includes the most current, and the historical, smoking and tobacco-related health factors from the [place] facility where the Encounter took place.Current Smoking Status This section includes the most current smoking, or tobacco-related health factor, from the [place] facility where the Encounter took place. Date/Time Current Smoking Status Comment Facility Apr 22, 2021 02:00 PM VA-TOBACCO NEVER USED OLIVA ALEMAN [facility] Encounter Notes: All associated encounter notes This section contains the clinical notes associated to the Encounter. Date/Time Encounter Note(s) Provider Source March 17, 2022 09:32 AM PHARMACY NOTE: AWILDA MONTE [facility] LOCAL TITLE: PHARMACY NON [place] CARE MEDICATIONS STANDARD TITLE: PHARMACY NOTE DATE OF NOTE: MARCH 17, 2022@09:32 ENTRY DATE: MARCH 17, 2022@09:32:49 AUTHOR: AWILDA MONTE EXP COSIGNER: URGENCY: STATUS: COMPLETED [facility] RECEIVED electronic p rescription(s) (eRX(s)) from NON-VA Provider: JOSEPH LOERA Date eRX received: March Outside (NON-VA) provider no t authorized to write for prescription(s) through [place] pharmacy. Prescription request REDIRECTED via FAX to one o f the following for review: [X][facility] [ ]Other: [ ] [facility] ([facility]) [ ] [facility] [ ] [facility] [ ] [facility] eRx Reference #: [id number] eRx Prescription Information: eRx Drug: potassium chloride ER 20 mEq tablet,ex tended release(part/cryst) (Klor-Con M20) eRx Qty: 90 eRx Refills: 3 eRx Days Supply: eRx Written Date: MARCH 17, 2022 eRx Issue Date: Prohibit Renewals: No eRx Sig: Take 1 Tablet (20 mEq) by mouth once daily with a meal. /kecia/ AWILDA MONTE pharmacist Signed: 03/17/2022 09:33
--- OUTSIDE RECORDS SUMMARY | 2022-09-10 10:22 | XMS_ITS | Encounter Summary ---
:1945 Author Organization [facility] rs Address [address] [place] [address] Support Name Relationship Address Phone KYLEIGH FRIAS Unavailable [address] [facility] [address] RADHA FRIAS Unavailable [address] [facility] [phone] [place] [address] Insurance Providers: All historical and current Section [...] Anderson HUMANA MCR MEDICARE MCR Nov 08, [id number] [phone] ANTHONY Verna MESSER PATIENT (WNR) ADVANTAGE (WNR) 2017 1 85 2 EITH MEDICARE MEDICARE PART Sep 08, PART A [id number] [address],K P ATIENT (WNR) (M) A 2008 [id number] [phone] EITH MEDICARE MEDICARE PART Sep 08, PART B [id number] [address],K P ATIENT (WNR) (M) B 2008 [id number] [phone] EITH Selected Encounter This section includes the information on record at [place] for the Encounter. Date/Time Encounter Type Encounter Description Reason Provider Source March 16, 2022 08:43 Outpatient Encounter COMMUNITY CARE AM CONSULT IHE [...] 20 appointments. The data comes from all [place] treatment facilities. Appointment Date/Time Appointment Type Appointment Facili ty Name May 15, 2022 11:30 AM AMBULATORY - MEDICINE [facility] Jun 08, 2022 11:00 AM AMBULATORY - MEDICINE [facility] Social History: Smoking Status (Most current) and Tobacco Use (All prior to encounter date) This section includes the most current, and the historical, smoking and tobacco-related health factors from the [place] facility where the Encounter took place.Current Smoking Status This section includes the most current smoking, or tobacco-related health factor, from the [place] facility where the Encounter took place. Date/Time Current Smoking Status Comment Facility Apr 22, 2021 02:00 PM VA-TOBACCO NEVER USED OLIVA [facility] Encounter Notes: All associated encounter notes This section contains the clinical notes associated to the Encounter. Date/Time Encounter Note(s) Provider Source March 16, 2022 08:43 AM PHARMACY NOTE: LINDA DEL ANGEL IS [facility] LOCAL TITLE: PHARMACY NON [place] CARE MEDICATIONS STANDARD TITLE: PHARMACY NOTE DATE OF NOTE: MARCH 16, 2022@08:43 ENTRY DATE: MARCH 16, 2022@08:45:03 AUTHOR: LINDA DEL ANGEL EXP COSIGNER: URGENCY: STATUS: COMPLETED [facility] R ECEIVED electronic prescription(s) (eRX(s))from NON- [place] Provider: JOSEPH LOERA Date eRX received: March The outside (NON-VA) provider not authorized to write for prescription(s) through community care at this [place] pharmacy at th is time. Prescription request FORWARDED via FAX to [facility] for review eRx Prescription Information: eRx Reference #: [id number] empagliflozin 25 mg t EVARISTO,WHITLEY N 03/16/22 eRx Reference #: [id number] doxazosin 4 mg tablet WHITLEY LOERA N 03/16/22 eRx Reference #: [id number] omeprazole 20 mg caps WHITLEY LOERA N 03/16/22 eRx Reference #: [id number] potassium gluconate 5 EVARISTO,WHITLEY N 03/16/22 eRx Reference #: [id number] glipiZIDE ER 10 mg ta WHITLEY LOERA 03/16/22 eRx Reference #: [id number] lisinopril 20 mg-hydr WHITLEY LOERA N 03/16/22 eRx Reference #: [id number] metFORMIN ER 500 mg t WHITLEY LOERA N 03/16/22 eRx Reference #: [id number] mirabegron ER 50 mg t WHITLEY LOERA N 03/16/22 /kecia/ LINDA DEL ANGEL PharmD Signed: 03/16/2022 08:48
--- OUTSIDE RECORDS SUMMARY | 2022-09-10 10:22 | XMS_ITS | Encounter Summary ---
:1945 Author Organization [facility] rs Address [address] [place] [address] Support Name Relationship Address Phone KYLEIGH FRIAS Unavailable [address] [facility] [place] [place] [address] RADHA FRIAS Unavailable [address] [facility] [phone] [place] [address] Insurance Providers: All historical and current Section [...] Anderson HUMANA MCR MEDICARE MCR Nov 08, [id number] [phone] ANTHONY Verna MESSER PATIENT (WNR) ADVANTAGE (WNR) 2017 1 85 2 EITH MEDICARE MEDICARE PART Sep 08, PART A [id number] [address],K P ATIENT (WNR) (M) A 2008 [id number] [phone] EITH MEDICARE MEDICARE PART Sep 08, PART B [id number] [address],K P ATIENT (WNR) (M) B 2008 [id number] [phone] EITH Selected Encounter This section includes the information on record at [place] for the Encounter. Date/Time Encounter Type Encounter Description Reason Provider Source March 27, 2022 12:12 Outpatient Encounter TELEPHONE PRIMARY CARE IHE Encounter Template Text not used by [place] Plan of Treatment: Future Appointments (+ 6 months) and Future Tests (+/- 45 days) The Plan of Treatment section includes future care activities for the patient from all [place] treatmentfacilities. This section includes future appointments and future orders which are active, pending orscheduled.Future Appointments This section includes appointments that were scheduled to occur 6 months from the date of the Encounter, up to a maximum of 20 appointments. The data comes from all [place] treatment facilities. Appointment Date/Time Appointment Type Appointment Facili ty Name May 15, 2022 11:30 AM AMBULATORY - MEDICINE [facility] Jun 08, 2022 11:00 AM AMBULATORY - MEDICINE [facility] Social History: Smoking Status (Most current) and Tobacco Use (All prior to encounter date) This section includes the most current, and the historical, smoking and tobacco-related health factors from the [place] facility where the Encounter took place.Current Smoking Status This section includes the most current smoking, or tobacco-related health factor, from the [place] facility where the Encounter took place. Date/Time Current Smoking Status Comment Facility Apr 22, 2021 02:00 PM VA-TOBACCO NEVER USED [facility]A [facility] Encounter Notes: All associated encounter notes This section contains the clinical notes associated to the Encounter. Date/Time Encounter Note(s) Provider Source March 27, 2022 12:13 PM PRIMARY CARE NONVA NOTE: VIKI LANCE [facility] LOCAL TITLE: CO-MANAGED CARE NOTE STANDARD TITLE: PRIMARY CARE NONVA NOTE DATE OF NOTE: MARCH 27, 2022@12:13 ENTRY DATE: MARCH 27, 2022@12:14:02 AUTHOR: VIKI LANCE EXP COSIGNER: URGENCY: STATUS: COMPLETED The following prescriptions have been received i n co-managed care. A separate co-managed care note will be entered and alerted to the PCP when/if records are received. doxazosin mirabegron omeprazole empagliflozin potassium gluconate potassium chloride lisinopril-hydrochlorothiazide mami /es/ Viki Lance LPN Co-Fiber Optics Supervisor Signed: 03/27/2022 12:15
--- OUTSIDE RECORDS SUMMARY | 2022-09-10 10:23 | XMS_ITS | Encounter Summary ---
:1945 Author Organization [facility] Address [address] [place] [address] Support Name Relationship Address Phone KYLEIGH FRIAS Unavailable [address] [facility] [place] [address] RADHA FRIAS Unavailable [address] [facility] [phone] [place] [address] Insurance Providers: All historical and current Section [...] Anderson HUMANA MCR MEDICARE MCR Nov 08, [id number] [phone] ANTHONY Verna MESSER PATIENT (WNR) ADVANTAGE (WNR) 2017 1 85 2 EITH MEDICARE MEDICARE PART Sep 08, PART A [id number] [address],K P ATIENT (WNR) (M) A 2008 [id number] [phone] EITH MEDICARE MEDICARE PART Sep 08, PART B [id number] [address],K P ATIENT (WNR) (M) B 2008 [id number] [phone] E[place] Selected Encounter This section includes the information on record at [place] for the Encounter. Date/Time Encounter Type Encounter Description Reason Provider Source Jun 08, 2022 11:00 Outpatient Encounter WEIGHT MGMT & MOVE! AM PROG - GRP IHE Encounter Template Text not used by [place] Social History: Smoking Status (Most current) and Tobacco Use (All prior to encounter date) This section includes the most current, and the historical, smoking and tobacco-related health factors from the [place] facility where the Encounter took place.Current Smoking Status This section includes the most current smoking, or tobacco-related health factor, from the [place] facility where the Encounter took place. Date/Time Current Smoking Status Comment Facility May 15, 2022 11:30 AM [place]-TOBACCO NEVER USED [facility] Tobacco Use History This section includes a history of the smoking, or tobacco- related health factors, that were collected on or before the date of the Encounter. The data comes from the [place] facility where the Encounter took place. Date/Time Smoking Status/Tobacco Use Comment [facility] Apr 22, 2021 02:00 PM VA-TOBACCO NEVER USED [facility] Encounter Notes: All associated encounter notes This section contains the clinical notes associated to the Encounter. Date/Time Encounter Note(s) Provider Source Jun 11, 2022 12:57 PM REPORT OF CONTACT: BABAR LAWTON [facility] LOCAL TITLE: APPOINTMENT SCHEDULING NOTE H STANDARD TITLE: REPORT OF CONTACT DATE OF NOTE: JUN 11, 2022@12:57 ENTRY DATE: JUN 11, 2022@12:57:42 AUTHOR: ALEXA LAWTON EXP COSIGNER: URGENCY: STATUS: COMPLETED SUBJECT: MOVE! - Start SMART Nutrition Class No show Contact: No show letter sent to Cornelia's addres s on file. Jun If Cornelia calls back, schedule appointment for : [facility] NUTR START SMART RTC #VVC# [id number] ([id number]) CONSENTED, EMAIL C ONFIRMED, PACKET SENT [facility] NS/RS:[id number] /kecia/ GREGG LAWTON MOVE! Painting Technician Signed: 06/11/2022 12:58
--- OUTSIDE RECORDS SUMMARY | 2022-09-10 10:23 | XMS_ITS | Encounter Summary ---
:1945 Author Organization [facility] rs Address [address] [place] [address] 147[address] Support Name Relationship Address Phone KYLEIGH FRIAS Unavailable [address] [facility] [place] [address] RADHA FRIAS Unavailable [address] [facility] [phone] [place] [address] Insurance Providers: All historical and current Section [...] Anderson HUMANA MCR MEDICARE MCR Nov 08, [id number] [phone] Verna WHELAN PATIENT (WNR) ADVANTAGE (WNR) 2017 1 85 2 EITH MEDICARE MEDICARE PART Sep 08, PART A [id number] [address] P ATIENT (WNR) (M) A 2008 [id number] [phone] EITH MEDICARE MEDICARE PART Sep 08, PART B [id number] [address],K P ATIENT (WNR) (M) B 2008 [id number] [phone] EITH Selected Encounter This section includes the information on record at [place] for the Encounter. Date/Time Encounter Type Encounter Reason Provider Source Description May 15, 2022 OFFICE O/P EST PRIMARY ICD-10-CM E11.9 PORTER GALEANO 11:30 AM MOD 30-39 MIN CARE/MEDICINE Type 2 diabetes ABETH M mellitus without complications with Provider Comments: Diabetes Mellitus Type 2 ([facility] [id number]) IHE Encounter Template Text not used by [place] Assessments - Encounter Diagnoses This section includes the primary and secondary diagnoses documented for the Encounter. Date/Time Primary/Secondary Diagnosis Name Provider Source Diagnosis May 15, 2022 PRIMARY Type 2 diabetes PORTER GALEANO [place] 12:41 PM mellitus without [facility] Abdirahman [facility] complications May 15, 2022 SECONDARY Encounter for PORTER GALEANO V A 12:41 PM immunization MITA SIMS May 15, 2022 SECONDARY Essential PORTER GALEANO [place] 12:41 PM (primary) MITA SIMS hypertension May 15, 2022 SECONDARY Gastro-esophageal [facility] 12:41 PM reflux disease MITA Gary [facility] without esophagitis Plan of Treatment: Future Appointments (+ 6 months) and Future Tests (+/- 45 days) The Plan of Treatment section includes future care activities for the patient from all [place] [facility]. This section includes future appointments and future orders which are active, pending orscheduled.Future Appointments This section includes appointments that were scheduled to occur 6 months from the date of the Encounter, up to a maximum of 20 appointments. The data comes from all [place] treatment facilities. Appointment Date/Time Appointment Type Appointment Facili ty Name Jun 08, 2022 11:00 AM AMBULATORY - MEDICINE [facility] Vital Signs: All taken on the encounter date This section contains inpatient and outpatient Vital Signs collected on the date of the Encounter. Date/Time Temperature Pulse Blood Respiratory SP02 Pain Height Weight Phillip dy Source Pressure Rate Mass Index May 15, 97.7 F 93 132/74 18 /min 96 % 0 187.6 29 [place] 2021 11:19 /min mm[Hg] lb [facility] Immunizations: All administered on the encounter date This section contains immunizations associated to the Encounter. Immunization Series Date Issued Reaction Comments PNEUMOCOCCAL CONJUGATE PCV20, POLYSACCHARIDE May 15 022 [id number] CONJUGATE, ADJUVANT, PF Social History: Smoking Status (Most current) and Tobacco Use (All prior to encounter date) This section includes the most current, and the historical, smoking and tobacco-related health factors from the AL facility where the Encounter took place.Current Smoking Status This section includes the most current smoking, or tobacco-related health factor, from the AL facility where the Encounter took place. Date/Time Current Smoking Status Comment Facility May 15, 2022 11:30 AM AL-TOBACCO NEVER USED [facility] Tobacco Use History This section includes a history of the smoking, or tobacco- related health factors, that were collected on or before the date of the Encounter. The data comes from the AL facility where the Encounter took place. Date/Time Smoking Status/Tobacco Use Comment Vega bray Apr 22, 2021 02:00 PM VA-TOBACCO NEVER USED [facility] Encounter Notes: All associated encounter notes This section contains the clinical notes associated to the Encounter. Date/Time Encounter Note(s) Provider Source May 15, 2022 11:47 AM INTERNAL MEDICINE NOTE: GREGG GALEANO [facility] LOCAL TITLE: MEDICINE CLINIC NOTE STANDARD TITLE: INTERNAL MEDICINE NOTE DATE OF NOTE: MAY 15, 2022@11:47 ENTRY DATE: MAY 15, 2022@11:47:49 AUTHOR: GREGG GALEANO EXP COSIGNER: URGENCY: STATUS: COMPLETED S: 76 y/o M with hx DM2 presenting for a nnual comanaged visit. Follows closely with Dr Cevallos via [facility]. He would prefer to f ill doxazosin, KCl and omeprazole via local pharmac y. Wondering about weight loss options, open to MOVE program. Shares regarding his [place] 11 [place] He wa s put on bedrest for 6 months. Shares his gratitude to their [facility] family doctor who saved his life. He has no residual effects. Active problems - Computerized Problem List is t he source for the followin. Diabetes Mellitus Type 2 ([facility] [id number]) 2. H/O: rheumatic fever 3. Chronic prostatitis 4. HTN - Hypertension ([facility] [id number]) 5. GERD - Gastro-Esophageal Reflux Disease ([facility] [id number]) 6. Age related macular degeneration Active Outpatient Medications (including Supplie s): Outpatient Medications Status 1) DOXAZOSIN MESYLATE 8MG TAB TAKE ONE-HALF TABL ET BY ACTIVE MOUTH AT BEDTIME 2) EMPAGLIFLOZIN 25MG TAB TAKE ONE TABLET BY ANNMARIE TH EVERY ACTIVE (S) DAY FOR DIABETES 3) GLIPIZIDE 10MG SA TAB TAKE ONE TABLET BY MOUT H EVERY ACTIVE DAY 4) HCTZ 25/LISINOPRIL 20MG TAB TAKE 1 TABLET BY MOUTH ACTIVE EVERY DAY 5) MAGNESIUM OXIDE 420MG TAB TAKE ONE TABLET BY MOUTH ACTIVE TWICE A DAY 6) METFORMIN HCL 500MG 24HR SA TAB TAKE FOUR TAB LETS BY ACTIVE MOUTH AT BEDTIME 7) OMEPRAZOLE 20MG EC CAP TAKE ONE CAPSULE BY MO UTH ACTIVE TWICE A DAY ON AN EMPTY STOMACH, AT LEAST 30 MINUTES PRIOR TO A MEAL 8) POTASSIUM CL 20MEQ SA TAB (DISPERSIBLE) TAKE ONE ACTIVE TABLET BY MOUTH EVERY DAY Non-VA Medications Status 1) Non-VA ACETAMINOPHEN 325MG TAB 650MG MOUTH TW ICE A ACTIVE DAY NEEDED 2) Non-VA CHOLECALCIF 10MCG (D3-400UNIT) TAB 20M CG MOUTH ACTIVE EVERY DAY 3) Non-VA DOXAZOSIN MESYLATE 8MG TAB 4MG MOUTH A T ACTIVE BEDTIME 4) Non-VA GLIPIZIDE 5MG SA TAB 5MG MOUTH EVERY D AY ACTIVE 5) Non-VA GLUCOMANNAN CAP/TAB 1 CAP/TAB MOUTH EV AMOR DAY ACTIVE 6) Non-VA HCTZ 12.5/LISINOPRIL 10MG TAB 1 TABLET MOUTH ACTIVE 7) Non-VA METFORMIN HCL 500MG 24HR SA TAB 2000MG MOUTH ACTIVE EVERY DAY 8) Non-VA MIRABEGRON 50MG SA TAB 50MG MOUTH EVER Y DAY ACTIVE 9) Non-VA OMEPRAZOLE 20MG EC CAP 20MG MOUTH TWIC E A DAY ACTIVE 10) Non-VA POTASSIUM CL 20MEQ SA TAB (DISPERSIBL E) 20MEQ ACTIVE MOUTH 18 Total Medications Temperature: 97.7 F [36.5 C] (05/15/2022 11:19) Blood Pressure: 132/74 (05/15/2022 11:19) Pulse: 93 (05/15/2022 11:19) Respiration: 18 (05/15/2022 11:19) Pain: 0 (05/15/2022 11:19) Pulse Oximetry: 96% (05/15/2022 11:19) Gen: alert, pleasant, NAD HEENT: no icterus, mmm CV: rrr, n m/r/g resp: lungs ctab, no wheezes/crackles Ext: no LE edema Labs 03/16/2022 cr 1.15 a1c 6.8 A/P DM2 - on metformin, glipizide, empa HTN - on HCTZ/lisinopril BPH with LUTS - on doxazosin, mirabegron Obesity - MOVE referral RTC 1 year or prn /es/ GREGG GALEANO MD PHYSICIAN Signed: 05/15/2022 12:41 May 15, 2022 11:21 AM INTERNAL MEDICINE OUTPATIENT NOTE: Jaimee HOFF [facility] LOCAL TITLE: MEDICINE CLINIC NURSING NOTE STANDARD TITLE: INTERNAL MEDICINE OUTPATIENT NOT E DATE OF NOTE: MAY 15, 2022@11:21 ENTRY DATE: MAY 15, 2022@11:21:16 AUTHOR: COLLINS HOFF EXP COSIGNER: URGENCY: STATUS: COMPLETED TYPE OF VISIT: Appointment Check In Type of appointment: In-person appointment REASON FOR VISIT: Annual ALLERGIES: MUSTARD (Apr 22, 2021) ADHESIVE TAPE (Apr 22, 2021) POLLEN (Apr 22, 2021) VITAL SIGNS: Blood Pressure: 132/74 (05/15/2022 11:19) Pulse: 93 (05/15/2022 11:19) Respiration: 18 (05/15/2022 11:19) Temperature: 97.7 F [36.5 C] (05/15/2022 11:19) Weight: 187.6 lb [85.09 kg] (05/15/2022 11:19) Height: 67 in [170.2 cm] (04/22/2021 14:01) BMI: 29.4 O2 Sat: 96% (05/15/2022 11:19) Pain: 0 (05/15/2022 11:19) PAIN SCREEN: Patient is not having significant pain that the y wish to discuss with their provider today. Suicide Screen: C-SSRS Screening Hodges Suicide Severity Rating Scale (C-SSRS) screener 1. Over the past month, have you wished you wer e or wished you could go to sleep and not wake up? No 2. Over the past month, have you had any actual thoughts of killing yourself? No 3. Over the past month, have you been thinking about how you might do this? Response not required due to responses to other questions. 4. Over the past month, have you had these thou ghts and had some intention of acting on them? Response not required due to responses to other questions. 5. Over the past month, have you started to wor k out or worked out the details of how to kill yourself? Response not required due to responses to other questions. 6. If yes, at any time in the past month did yo u intend to carry out this plan? Response not required due to responses to other questions. 7. In your lifetime, have you ever done anythin g, started to do anything, or prepared to do anything to end you r life (for example, collected pills, obtained a gun, gave away valu uhma, went to the roof but didn't jump)? No 8. If YES, was this within the past 3 months? Response not required due to responses to other questions. Depression Screening: Perform PHQ-2 A PHQ-2 screen was performed. The score was 0 w hich is a negative screen for depression. Over the past two weeks, how often have you bee n bothered by the following problems? 1. Little interest or pleasure in doing things Not at all 2. Feeling down, depressed, or hopeless Not at all Alcohol Use Screen (AUDIT-C): Alcohol Screen: SCREEN FOR ALCOHOL (AUDIT-C) An alcohol screening test (AUDIT-C) was negativ e (score=4). 1. How often did you have a drink containing al cohol in the past year? Four or more times a week 2. How many drinks containing alcohol did you h ave on a typical day when you were drinking in the past year? One or two drinks 3. How often did you have six or more drinks on one occasion in the past year? Never Nursing Annual Screening: Fall History Screen During the past 12 months, have you had any fal ls? Patient does not report any falls in the past 1 2 months. MEDICATIONS: Patient is on one of the following medication c lasses: Antihypertensives, Antidepressants, Antipsychot ics, Diuretics, or Controlled substance medication used for pain. FALL RISK ADVICE: Fall Risk Advice provided. Handout entitled Fa ll Prevention At Home reviewed and given to patient and/or vijayan haley other. Script Talk Screen Are you able to read your prescription bottles with your glasses, magnifiers or other aids? Yes or patient not taking any prescriptions. Skin Screen Patient reports any current pressure ulcers, a history of pressure ulcers, or a wound from a manager of medical or Patient is bed-confined or a wheelchair-user or Patient requires assistance to transfer/change position No, Skin Screen is Negative Home Abuse/Violence Screen Is your home free of abuse and violence? Yes Outpatient Nutrition Screen Body Mass Index (BMI)= 29.4 Etta: Collection DT Specimen Test Name Result Units R ef Range 07/30/2021 09:58 BLOOD HEMOGLOBIN A1C 6.7 H % 4 .0 - 6.0 [place] Hgb A1C: No data available [place] Hgb A1C: No data available Point of Care Hgb A1C: POC HGB A1C____ Is patient's BMI less than 18.5? No Does patient have swallowing, coughing, or chew ing problems affecting oral intake? No Has patient experienced unplanned weight loss o r gain greater than 10 pounds over the last 2 months? No Is patient's Hgb A1C (Glycosylated Hemoglobin) greater than 9.5? Information not available Is patient receiving Total Parenteral Nutrition (TPN) or Tube Feedings? No Patient Health Education Screen BARRIERS/SPECIAL NEEDS: Visual limitations PREFERRED STYLE OF LEARNING: Watching something Client Assistive Service (LUIS FELIPE) Screen Does the patient require assistance with outpat ient visit? No Tobacco Use Screening: The patient has never used tobacco. Homelessness/Food Insecurity Screen: In the past 2 months, have you been living in s table housing that you own, rent, or stay in as part of a household? Y es - Living in stable housing. Are you worried or concerned that in the next 2 months you may NOT have stable housing that you own, rent, or stay in a s part of a household? No - Not worried about housing near future [place] reports the following: Within the past 12 months, you worried whether your food would run out before you got money to buy more. Never true Within the past 12 months, the food you bought just didn't last and you didn't have money to get more. Never true COVID-19 Immunization: [employer] TS COVID-19 Vaccine given previously (Arjun-sucrose formulation - after October 2021 ) Patient received a prior dose of the [employer] COV ID-19 Vaccine. Date: March 12, 2022 Series: Series 4 Location: [facility] Pneumococcal Conjugate Vaccine (PCV15/PCV20): The patient received pneumococcal conjugate vac cine PCV20 (Prevnar 20) 0.5ml IM today in Left Deltoid. Health Workers: [employer] Lot # and Expiration Date: [id number] 05/2023 Administered by protocol/policy Complications: None The Pneumococcal conjugate vaccine VIS was give n to the patient today. VIS version date Dec. /kecia/ COLLINS HOFF LPN, LPN Signed: 05/15/2022 11:32
--- OUTSIDE RECORDS SUMMARY | 2022-09-10 10:23 | XMS_ITS | Encounter Summary ---
:1945 Author Organization [facility] Address [address] [place] [address] Support Name Relationship Address Phone KYLEIGH FRIAS Unavailable [address] [facility] [place] [address] RADHA FRIAS Unavailable [address] [facility] [phone] [place] [address] Insurance Providers: All historical and current Section [...] Anderson HUMANA MCR MEDICARE MCR Nov 08, [id number] [phone] ANTHONY Verna MESSER PATIENT (WNR) ADVANTAGE (WNR) 2017 1 85 2 EITH MEDICARE MEDICARE PART Sep 08, PART A [id number] [address],K P ATIENT (WNR) (M) A 2008 [id number] [phone] EITH MEDICARE MEDICARE PART Sep 08, PART B [id number] [address],K P ATIENT (WNR) (M) B 2008 [id number] [phone] EITH Selected Encounter This section includes the information on record at [place] for the Encounter. Date/Time Encounter Type Encounter Description Reason Provider Source May 25, 2022 04:11 Outpatient Encounter WEIGHT MGMT & MOVE! PM PROG - GRP IHE Encounter Template Text not used by [place] Plan of Treatment: Future Appointments (+ 6 [...] 20 appointments. The data comes from all [place] treatment facilities. Appointment Date/Time Appointment Type Appointment Facili ty Name Jun 08, 2022 11:00 AM AMBULATORY - MEDICINE [facility] Social History: Smoking Status (Most current) and Tobacco Use (All prior to encounter date) This section includes the most current, and the historical, smoking and tobacco-related health factors from the [place] facility where the Encounter took place.Current Smoking Status This section includes the most current smoking, or tobacco-related health factor, from the [place] facility where the Encounter took place. Date/Time Current Smoking Status Comment Facility May 15, 2022 11:30 AM [place]-TOBACCO NEVER USED [facility] Tobacco Use History This section includes a history of the smoking, or tobacco- related health factors, that were collected on or before the date of the Encounter. The data comes from the [place] facility where the Encounter took place. Date/Time Smoking Status/Tobacco Use Comment [facility] it Apr 22, 2021 02:00 PM [place]-TOBACCO NEVER USED [facility] Encounter Notes: All associated encounter notes This section contains the clinical notes associated to the Encounter. Date/Time Encounter Note(s) Provider Source May 25, 2022 04:11 PM REPORT OF CONTACT: [facility] LOCAL TITLE: APPOINTMENT SCHEDULING NOTE H STANDARD TITLE: REPORT OF CONTACT DATE OF NOTE: MAY 25, 2022@16:11 ENTRY DATE: MAY 25, 2022@16:11:42 AUTHOR: ALEXA LAWTON EXP COSIGNER: URGENCY: STATUS: COMPLETED SUBJECT: MOVE! - Start SMART Nutrition Class APPOINTMENT SCHEDULING NOTE Has ADDENDA Return to Clinic Order needing clarification sustainable design coordinator, please review this request to determine appropriate scheduling. Patient is 76 years old. Activity: 05/15/2022 12:38 New Order entered by Yasmine GALEANO (STAFF PHYSICIAN) Order Text: Return to [email or web address] DIET START SMART GRP [id number] on or around ( Jun 14, 2022 ) for a total of 1 appointment(s) offer all modalities /kecia/ GREGG LAWTON MOVE! Wash Tub Machine Operator Signed: 05/25/2022 16:12 Receipt Acknowledged By: * AWAITING SIGNATURE * DASHAWN BARRIENTOS 05/28/2022 ADDENDUM STATUS: COMPLETED [place] appropriate for start kaila /es/ JUAN ALBERTO [address], NEVA MOVE! Dietitian Signed: 05/28/2022 15:44
--- OUTSIDE RECORDS SUMMARY | 2022-09-10 10:23 | XMS_ITS | Encounter Summary ---
:1945 Author Organization [facility] rs Address [address] [place] [address] Support Name Relationship Address Phone KYLEIGH FRIAS Unavailable [address] [place] [address] RADHA FRIAS Unavailable [address] [facility] [phone] [place] [address] Insurance Providers: All historical and current Section [...] Anderson HUMANA MCR MEDICARE MCR Nov 08, [id number] [phone] ANTHONY Verna MESSER PATIENT (WNR) ADVANTAGE (WNR) 2017 1 85 2 EITH MEDICARE MEDICARE PART Sep 08, PART A [id number] [address],K P ATIENT (WNR) (M) A 2008 MT [phone] EITH MEDICARE MEDICARE PART Sep 08, PART B [id number] [address],K P ATIENT (WNR) (M) B 2008 [facility] [phone] EI Selected Encounter This section includes the information on record at [place] for the Encounter. Date/Time Encounter Type Encounter Description Reason Provider Source March 12, 2022 12:00 Outpatient Encounter EVENT (HISTORICAL) AM IHE Encounter Template Text not used by [...] 20 appointments. The data comes from all [place] treatment facilities. Appointment Date/Time Appointment Type Appointment Facili ty Name May 15, 2022 11:30 AM AMBULATORY - MEDICINE [facility] Jun 08, 2022 11:00 AM AMBULATORY - MEDICINE [facility] Immunizations: All administered on the encounter date This section contains immunizations associated to the Encounter. Immunization Series Date Issued Reaction Comments COVID-19 ([employer]act[employer]at), MRNA, LNP-S, PF, 30 MCG/0.3 4 March 12, 2022 ML DOSE, SATISH-SUCROSE (AGES 12+ YEARS)
--- OUTSIDE RECORDS SUMMARY | 2022-09-10 10:23 | XMS_ITS | Encounter Summary ---
:1945 Author Organization [facility] Address [address] [place] [address] Support Name Relationship Address Phone KYLEIGH FRIAS Unavailable [address] [place] [address] RADHA FRIAS Unavailable [address] [facility] [phone] [place] [address] Insurance Providers: All historical and current Section [...] Anderson HUMANA MCR MEDICARE MCR Nov 08, [id number] [phone] Verna WHELAN PATIENT (WNR) ADVANTAGE (WNR) 2017 1 85 2 EITH MEDICARE MEDICARE PART Sep 08, PART A [id number] [address],K P ATIENT (WNR) (M) A 2008 [id number] [phone] EITH MEDICARE MEDICARE PART Sep 08, PART B [id number] [address],K P ATIENT (WNR) (M) B 2008 [id number] [phone] EITH Selected Encounter This section includes the information on record at [place] for the Encounter. Date/Time Encounter Type Encounter Reason Provider Source Description Jun 05, 2022 10:26 Outpatient ADMIN AMITA RASMUSSEN AM Encounter (MASNONCT) A E Encounter Template Text not used by [place] Plan of Treatment: Future Appointments (+ 6 [...] 08, 2022 11:00 AM AMBULATORY - MEDICINE [facility] Social History: Smoking Status (Most current) [...] Comment Facility May 15, 2022 11:30 AM [place]-TOBACCO NEVER USED [facility] Tobacco Use History This section includes a history of the smoking, or tobacco- related health factors, that were collected on or before the date of the Encounter. The data comes from the [place] facility where the Encounter took place. Date/Time Smoking Status/Tobacco Use Comment [facility] Apr 22, 2021 02:00 PM [place]-TOBACCO NEVER USED [facility] Encounter Notes: All associated encounter notes This section contains the clinical notes associated to the Encounter. Date/Time Encounter Note(s) Provider Source Jun 05, 2022 10:28 AM TELEHEALTH NOTE: AMITA GOLDEN [facility] LOCAL TITLE: TELEHEALTH TECHNOLOGY SCREENING (T TS) STANDARD TITLE: TELEHEALTH NOTE DATE OF NOTE: JUN 05, 2022@10:28 ENTRY DATE: JUN 05, 2022@10:28:38 AUTHOR: AMITA GOLDEN EXP COSIGNER: URGENCY: STATUS: COMPLETED agrees to [place] Video Connect (VVC) and has capability to complete a VVC visit. VVC capable, but declined test call and/o r will perform a test call independently. E-mail: Device: Laptop/Desktop Computer /kecia/ AMITA GOLDEN [address] Telehealth [place] Line Signed: 06/05/2022 10:29
--- OUTSIDE RECORDS SUMMARY | 2022-09-10 10:23 | XMS_ITS | Encounter Summary ---
:1945 Author Organization [facility] [address] Address [address] [place] [id number] Support Name Relationship Address Phone KYLEIGH FRIAS Unavailable [address] [address] RADHA FRIAS Unavailable [address] [phone] [place] [address] Insurance Providers: All historical and current Section [...] Anderson [employer] MCR MEDICARE MCR Nov 08, [id number] [phone] ANTHONY Verna MESSER PATIENT (WNR) ADVANTAGE (WNR) 2017 1 [id number] [phone] EITH MEDICARE MEDICARE PART Sep 08, PART A [id number] P ATIENT (WNR) (M) A 2008 [id number] [phone] E[facility] MEDICARE MEDICARE PART Sep 08, PART B [id number] [address],K P ATIENT (WNR) (M) B 2008 [id number] [phone] EITH Selected Encounter This section includes the information on record at [place] for the Encounter. Date/Time Encounter Type Encounter Description Reason Provider Source May 29, 2022 01:32 Outpatient Encounter WEIGHT [facility] & MOVE! PM PROG - GRP IHE Encounter Template Text not used by [place] Plan of Treatment: Future Appointments (+ 6 [...] 20 appointments. The data comes from all [place] treatment facilities. Appointment Date/Time Appointment Type Appointment Facili ty Name Jun 08, 2022 11:00 AM AMBULATORY - [facility] Social History: Smoking Status (Most current) and Tobacco Use (All prior to encounter date) This section includes the most current, and the historical, smoking and tobacco-related health factors from the [place] facility where the Encounter took place.Current Smoking Status This section includes the most current smoking, or tobacco-related health factor, from the [place] facility where the Encounter took place. Date/Time Current Smoking Status Comment Facility May 15, 2022 11:30 AM [place]-TOBACCO NEVER USED [facility] Tobacco Use History This section includes a history of the smoking, or tobacco- related health factors, that were collected on or before the date of the Encounter. The data comes from the [place] facility where the Encounter took place. Date/Time Smoking Status/Tobacco Use Comment [facility] it Apr 22, 2021 02:00 PM [place]-TOBACCO NEVER USED [facility] Encounter Notes: All associated encounter notes This section contains the clinical notes associated to the Encounter. Date/Time Encounter Note(s) Provider Source May 29, 2022 01:32 PM TELEHEALTH NOTE: BABAR LAWTON [facility] LOCAL TITLE: TELEHEALTH TECHNOLOGY SCREENING (T TS)-[facility] STANDARD TITLE: TELEHEALTH NOTE DATE OF NOTE: MAY 29, 2022@13:32 ENTRY DATE: MAY 29, 2022@13:33:05 AUTHOR: ALEXA LAWTON EXP COSIGNER: URGENCY: STATUS: COMPLETED SUBJECT: [facility] agrees to [place] Video Connect (VVC) and has capability and technology to complete a VVC visit, but ne eds a test call. Provided patient with [facility] Help Line # to call for telehealth test call . E-mail: [email or web address] Device(s) they can use: Smart Phone (Android), i OS Device (iPhone or iPad), Desktop/Laptop, Tablet /kecia/ GREGG LAWTON [employer]OVE! Data Warehouse Analyst Signed: 05/29/2022 13:36
[2022-09-10 10:52] LABS: SARS PCR* Negative SARS-CoV-2 (Negative)
[2022-09-10] MEDS: lidocaine HCL 2 % JELLY (TOP) STERILE 6 ML UR (11:14)
[2022-09-10 11:59] LABS: Appearance Urine Slightly Cloudy (Clear); Bilirubin Urine Negative (Negative); Blood Urine 1+ (Negative); Color Urine Yellow (Yellow); Glucose Urine 3+ (Negative); Ketones Urine Negative (Negative); Leukocyte Esterase Urine Negative (Negative); Nitrite Urine Negative (Negative); Protein Urine Trace (Negative); Specific Gravity Urine 1.015 (1.000-1.030); Urobilinogen Urine 0.2 (0.2-1.0)
[2022-09-10 12:21] LABS: RBC Urine 0-2 (0-2)
== END 2022-09-10 12:20 | disposition left against medical advice (07) ==
LOC: ED 10:07
PROVIDERS: Emergency Provider Emergency Medicine; PCP Family Medicine
DX: R16.2 Hepatomegaly with splenomegaly, not elsewhere classified (principal)
CPT/HCPCS: 36415; 74019; 74177; 80048; 80076; 81001; 82803; 83605; 83690; 83735; 85025; 86140; 87086; 87635; 93005; 96374; 96375; 99284; 99285; J1170; J2405; J7030; Q9967

== ENCOUNTER 2022-09-14 09:34 | Emergency (ER) | payer OTHER, SELFPAY ==
[2022-09-14 10:08] VITALS: BP 159/85; PULSE 96; RESP 18; TEMP 36.6; O2SAT 96; BMI 28.2
--- NOTE | 2022-09-14 11:51 | ED.MALEGU ---
HPI - Male Genitourinary General Time Seen by Provider: 11:52 Date Seen: 09/14/22 Chief complaint: Urogenital Problems, Male Stated complaint: Needs lima catheter removed Time Seen by Provider: 09/14/22 11:50 Source: patient, family, RN notes reviewed and old records reviewed Mode of arrival: ambulatory Limitations: no limitations History of Present Illness HPI Narrative: Patient is a pleasant 76-year-old [employer] with a history of urinary retention who comes to the emergency room requesting removal of his catheter. Patient noted that he has had urinary retention in the past and a need for a catheter but not in quite some time. He thinks this may be related to an allergic reaction to mustard which she did have potentially last week. He was seen on , September 10 at which time a catheter was placed after it was noted he had almost 2 L of retained urine. The abdominal pain which he had presented with resolved at that time. He was discharged with a catheter in place. He tells me today that he has had some urinary spasm/bladder spasm and he would like his catheter out. He states in the past he has had the catheter in for too long and this has caused a urinary tract infection. He has a plan in place and that is to do what he has done in the past which is self catheterization for 4-5 days. He notes that usually this is all it takes and then he returns to normal. At this time he denies any urinary tract in symptoms to include of fever or blood in his urine. He does note that he has got some irritation at the tip of his penis from the rubber of the catheter. 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 He denies fever, chills, abdominal pain. He does take Myrbetriq. He is currently on 50 mg a day and he is wondering if he can increase that dosing. Related Data Home Medications Medication Instructions Recorded Confirmed doxazosin 4 mg tablet mg 09/10/22 lisinopril 20 tab 09/10/22 mg-hydrochlorothiazide 25 mg tablet metformin 500 mg tablet,extended mg PO 09/10/22 release 24 hr omeprazole 20 mg capsule,delayed mg 09/10/22 release Allergies Allergy/AdvReac Type Severity Reaction Status Date / Time No Known Drug Allergies Allergy Verified 09/10/22 16:00 Review of Systems Status of ROS: Reports: 10 or more systems reviewed and unremarkable except as noted in History and below Const: Denies: fever, chills or fatigue ENMT: Denies: throat pain Cardio: Denies: chest pain, swelling of feet/ankles or shortness of breath with exertion Resp: Denies: shortness of breath or cough GI: Denies: abdominal pain, nausea or vomiting : Denies: blood in urine Musculo: Denies: back pain Integ/Breast: Denies: rash Neuro: Denies: headache Endo: Denies: fatigue PFSH PFSH Social History Smoking Status: Never smoker Do you use any of these nicotine containing products: None How often do you have a drink containing alcohol: never AUDIT-C Alcohol total score: 0 Non-prescribed substance use: denies use Exam Narrative: Exam Narrative: Patient is alert and oriented gentleman in no acute distress. Well-spoken. Heart with regular rate and rhythm and lungs are clear. No CVA tenderness with percussion. Abdomen is protuberant but soft. Examination of the penis shows some slight erythema at the urinary meatus by right ventral surface. Not well demarcated. No drainage from this area. Urine in the bag appears to be clear. Const: Vital Signs, click to edit/add: Vital Signs - 24 hr 09/14/22 10:08 Temperature 98 F Pulse Rate [Pulse Oximeter] 96 Respiratory Rate 18 Blood Pressure [Ri ght Upper Arm] 159/85 H Pulse Oximetry 96 Oxygen Delivery Me thod Room Air Documenting provider has reviewed patient's vital signs: yes Course Course Hospital Course: At this time I do speak with patient regarding the risk of removing a catheter. That is that he may have to have it replaced and it may be challenging to to place Vital Signs Vital signs: Initial Vital Signs Temperature 98 F 09/14/22 10:08 Temperature Source Temporal Artery Scan 09/14/22 10:08 Pulse Rate 96 09/14/22 10:08 Respiratory Rate 18 09/14/22 10:08 Blood Pressure 159/85 H 09/14/22 10:08 Blood Pressure Mean 109 09/14/22 10:08 Blood Pressure Position Standing 09/14/22 10:08 Pulse Oximetry 96 09/14/22 10:08 Oxygen Delivery Method 09/14/22 10:08 Vital Signs Temperature 98 F 09/14/22 10:08 Pulse Rate 96 09/14/22 10:08 Respiratory Rate 18 09/14/22 10:08 Blood Pressure 159/85 H 09/14/22 10:08 Pulse Oximetry 96 09/14/22 10:08 Oxygen Delivery Method 09/14/22 10:08 Temperature 98 F 09/14/22 10:08 Pulse Rate 96 09/14/22 10:08 Respiratory Rate 18 09/14/22 10:08 Blood Pressure 159/85 H 09/14/22 10:08 Pulse Oximetry 96 09/14/22 10:08 Oxygen Delivery Method 09/14/22 10:08 MDM - Male Genitourinary MDM Narrative Medical decision making narrative: 1. Catheter removal-patient understood the risks of removing his catheter that we may have to replace it. He is adamant that it must come out and he will do straight caths at home. Catheter was removed without difficulty. Examination of the penis shows some slight erythema but no evidence of a cellulitis. 2. Urinary retention-patient will be self cathing. He initially tells me that he has some kits from [employer] but then we receive a phone call from the pharmacy requesting prescription. Nursing staff cause this in for self caths 4 times a day for 7 days. 3. History of UTI-patient has no such symptoms at this time. We did attempt to collect some urine from clamping the catheter but only received a few drops enough for a culture and not for urinalysis. Did briefly speak about treating a UTI if this was the case but unable to ascertain at this time. Patient will need to return for fever, blood in urine and as needed. 4. Disposition-patient is very anxious to go. We will discharge him home. He appears motivated to return should he have problems or notice any symptoms of a UTI. Medical Records Attestation: I reviewed the patient's medical records. Discharge Plan Discharge Clinical Impression: Encounter for [place] catheter removal Patient Disposition: Home, Self-Care Condition: Improved Additional Instructions: Return as needed for worsening symptoms. Your plan to self cath and gradually decrease the frequency sounds to be a good 1. Seek medical attention for signs a UTI. Follow-up with primary MD as needed. Prescriptions: No Action omeprazole 20 mg capsule,delayed release(DR/EC) doxazosin 4 mg tablet lisinopril-hydrochlorothiazide 20-25 mg tablet metformin 500 mg tablet extended release 24 hr PO Follow Up/Referrals: Neptali Cevallos MD [Primary Care Provider] - Stand Alone Forms: [facility] Info Instructions
--- OUTSIDE RECORDS SUMMARY | 2022-09-14 12:04 | XMS_ITS | Continuity of Care Document ---
:1945 Author Organization [facility] Care Team Providers Name Role Phone [facility] Unavailable Unavailable Problems Combined list of problems from Department of [facility] and Veterans Affairs facilities. It does not include entries that were removed or entered in error. 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[facility] degeneration HCS Chronic prostatitis Active Condition [facility] H[facility] Diabetes Mellitus [facility] Type 2 ([facility] [id number]) GERD - Active Condition [facility] Gastro-Esophageal HC S Reflux Disease ([facility] [id number]) H/O: rheumatic fever Active Condition [facility] HCS HTN - Hypertension Active Condition [facility] ([facility] [id number]) HCS Diagnosis: ICD-10-CM Active Diagnosis [facility] E11.9 Type 2 HCS diabetes mellitus without complicationswith Provider Comments: Diabetes Mellitus Type 2 ([facility] [id number]) Diagnosis: ICD-10-CM Active Diagnosis [facility] Z23 Encounter for HC S immunizationwith Provider [...] 04/22 / [place] EN 325MG TABLETS 2020 [facility] TAB BY MOUTH M HCS TWICE A DAY NEEDED CHOLECALCIF TAKE TWO ORALLY ACTIVE FROYLAN, 04/22 / [place] CLEMENTINA 10MCG TABLETS 2020 [facility] (400UNIT) BY MOUTH M HCS TAB EVERY DAY DOXAZOSIN TAKE ONE ORALLY ACTIVE 08/01/2023 [id number] MOO RHEAD, 08/04/ [place] MESYLATE TABLET 2 2021 [facility] A 4MG TAB BY MOUTH M HCS AT BEDTIME DOXAZOSIN TAKE ORALLY DISCONT 04/25/2023 [id number] MOORHEA D, 04/28/ [place] MESYLATE ONE-HALF INUED 2 2021 [facility] 8MG TAB TABLET M HCS BY MOUTH AT BEDTIME DOXAZOSIN TAKE ORALLY ACTIVE [place]LAN, 04/22/ [place] MESYLATE ONE-HALF 2020 [facility] 8MG TAB TABLET M HCS BY MOUTH AT BEDTIME EMPAGLIFLOZ TAKE ONE ORALLY ACTIVE 04/25/2023 [id number] M OORHEAD, 04/28/ [place] IN 25MG TAB TABLET 2 2021 [facility] BY MOUTH M HCS EVERY DAY FOR DIABETES EMPAGLIFLOZ TAKE ORALLY DISCONT 05/15/2022 [id number] MOORH EAD, 05/15/ [place] IN 25MG TAB ONE-HALF INUED 2 2020 [facility] TABLET (EDIT) M HCS BY MOUTH EVERY DAY FOR DIABETES GLIPIZIDE TAKE ONE ORALLY ACTIVE 08/20/2023 [id number] MO ORHEAD, 08/20/ [place] 10MG TAB,SA TABLET 2 2021 [facility] BY MOUTH M [facility] EVERY DAY GLIPIZIDE TAKE ONE ORALLY DISCONT 07/24/2022 [id number] MO ORHEAD, 07/23/ [place] 10MG TAB,SA TABLET [...] TAB HYDROCHLORO TAKE 1 ORALLY ACTIVE 04/25/2023 [id number] MOO RHEAD, 04/28/ [place] THIAZIDE TABLET 2 2021 [facility] [facility] A 25MG/LISINO BY MOUTH M HCS PRIL 20MG EVERY TAB DAY MAGNESIUM TAKE ONE ORALLY ACTIVE 05/16/2023 [id number] MO ORHEAD, 05/19/ [place] OXIDE 420MG TABLET 2 2021 [facility] TAB BY MOUTH M HCS TWICE A DAY MAGNESIUM TAKE ONE ORALLY DISCONT 08/01/2022 [id number] MO ORHEAD, 08/01/ [place] OXIDE 420MG TABLET INUED 2020 [facility] TAB BY MOUTH M HCS TWICE A DAY METFORMIN TAKE ORALLY ACTIVE 04/25/2023 [id number] FROYLAN , 04/28/ [place] HCL 500MG FOUR [...] DAY OMEPRAZOLE TAKE ONE ORALLY DISCONT 04/25/2023 [id number] M OORHEAD, 04/28/ [place] 20MG CAP,EC CAPSULE INUED 2021 [facility] BY MOUTH M HCS TWICE A DAY ON AN EMPTY STOMACH, AT LEAST 30 MINUTES PRIOR TO A MEAL OMEPRAZOLE TAKE 1 ORALLY ACTIVE FROYLAN, 04/22/ [place] 20MG CAP,EC CAPSULE 2020 [facility] BY MOUTH M HCS TWICE A DAY POTASSIUM TAKE ONE ORALLY DISCONT 04/25/2023 [id number] MO ORHEAD, 04/28/ [place] CHLORIDE TABLET INUED [...] atus Comments Source Given By Number Code Destaticizer Feeder PNEUMOCOCCAL complet [place] CONJUGATE 2021 ed [facility] [facility] PCV20, HCS POLYSACCHARID E [id number] CONJUGATE, ADJUVANT, PF COVID-19 4 complet [place] ([facility]), 2021 ed HEAL TH MRNA, LNP-S, PF, 30 MCG/0.3 ML DOSE, SATISH-SUCROSE (AGES 12+ YEARS) COVID-19 3 complet PFR; [place] ([facility]), 2020 ed [id number]; [place] [facility] MRNA, LNP-S, 02 HCS PF, 30 1 MCG/0.3 ML DOSE INFLUENZA, complet [place] INJECTABLE, 2020 ed [place] [facility] QUADRIVALENT, HCS PRESERVATIVE FREE TDAP complet [place] 2020 ed [place] [facility] HCS COVID-19 2 complet PFR; [place] ([facility]), 2020 ed [id number]; [place] [facility] MRNA, LNP-S, 02 HCS PF, 30 1 MCG/0.3 ML DOSE COVID-19 1 complet PFR; [place] ([facility]), 2020 ed [id number]; [place] MRNA, LNP-S, 02 HCS [...] [MASS/VOLU /2020 No comment e ntered. IS [facility] C ME] IN Ordering Provid er: GREGG GALEANO PANEL+MG SERUM OR Report Releas ed Date/Time: Jul 31, 2021 10:07 AM PLASMA Reporting Lab: [facility] [address] Performing Lab: [facility] [address] [place] [address] BASIC UREA 14 8 - 26 08/20 Specimen Type: P LASMA [place] METABOLI No comment ent ered. IS [facility] C [MASS/VOLU Ordering Pro vider: GREGG GALEANO M PANEL+MG ME] IN Report Release d Date/Time: Jul 31, 2021 10:07 AM SERUM OR Reporting Lab: [facility] PLASMA [place] [address] Performing Lab: [facility] [place] [address] BASIC GLUCOSE 122 74 - 100 10 H Specimen Type: PLASMA [place] METABOLI [MASS/VOLU /2020 No comment e ntered. IS [facility] C ME] IN Ordering Provid er: GREGG GALEANO M PANEL+MG SERUM OR Report Releas ed Date/Time: Jul 31, 2021 10:07 AM PLASMA Reporting Lab: [facility] [place] [address] Performing Lab: [facility] [place] [address] BASIC SODIUM 140 136 - 145 08/20 Specimen Type: PLASMA [place] METABOLI [MOLES/VOL /2020 No comment e ntered. IS [facility] UME] IN Ordering Provid er: GREGG GALEANO M PANEL+MG SERUM OR Report Releas ed Date/Time: Jul 31, 2021 10:07 AM PLASMA Reporting Lab: [facility] [address] [place] [address] Performing Lab: [facility] [address] [place] [address] BASIC POTASSIUM 3.5 3.5 - 5.1 08/20 Specimen Typ e: PLASMA [place] METABOLI [MOLES/VOL /2020 No comment e ntered. IS [facility] C UME] IN Ordering Provid er: FROYLANDEEGREGG M PANEL+MG SERUM OR Report Releas ed Date/Time: Jul 31, 2021 10:07 AM PLASMA Reporting Lab: [facility] [address] [place] [facility] [address] Performing Lab: [facility] [address] [place] [facility] [address] BASIC CHLORIDE 103 98 - 107 08/20 Specimen Type: PLASMA [place] METABOLI [MOLES/VOL /2020 No comment e ntered. IS [facility] C UME] IN Ordering Provid er: FROYLANDEEGREGG M PANEL+MG SERUM OR Report Releas ed Date/Time: Jul 31, 2021 10:07 AM PLASMA Reporting Lab: [facility] [address] [place] [facility] [place] [address] Performing Lab: [facility] [address] [facility] [address] BASIC CARBON 26 22 - 29 08/20 Specimen Type: P LASMA [place] METABOLI DIOXIDE, /2020 No comment ent ered. IS [facility] C TOTAL Ordering Provid er: FROYLANDEEGREGG M PANEL+MG [MOLES/VOL Report Rele ased Date/Time: Jul 31, 2021 10:07 AM UME] IN Reporting Lab: [facility] SERUM OR [address] [facility] [address] PLASMA Performing Lab: [facility] [address] [facility] [address] BASIC CALCIUM 9.2 8.4 - 10.2 08/20 Specimen Type : PLASMA [place] METABOLI [MASS/VOLU /2020 No comment e ntered. IS [facility] C ME] IN Ordering Provid er: FROYLANCYRILGREGG M PANEL+MG SERUM OR Report Releas ed Date/Time: Jul 31, 2021 10:07 AM PLASMA Reporting Lab: [facility] [address] [place] [facility] [address] Performing Lab: [facility] [place] [address] BASIC MAGNESIUM 1.6 1.6 - 2.6 08/20 Specimen Typ e: PLASMA [place] METABOLI [MASS/VOLU /2020 No comment e ntered. IS [facility] C ME] IN Ordering Provid er: GREGG GALEANO PANEL+MG SERUM OR Report Releas ed Date/Time: Jul 31, 2021 10:07 AM PLASMA Reporting Lab: [facility] [place] [address] Performing Lab: [facility] [address] [place] [facility] [place] [address] BASIC ANION GAP 11 5 - 15 08/20 Specimen Type: PLASMA [place] METABOLI IN SERUM /2020 No comment ent ered. IS [facility] C OR PLASMA Ordering Prov ider: GREGG GALEANO PANEL+MG Report Release d Date/Time: Jul 31, 2021 10:07 AM Reporting Lab: [facility] [address] [place] [facility] [place] [address] Performing Lab: [facility] [address] [place] [facility] [address] BASIC GLOMERULAR 82 60 08/20 Specimen Type : PLASMA [place] METABOLI FILTRATION /2020 No comment e ntered. IS [place] [facility] RATE/1.73 Ordering Prov ider: GREGG GALEANO PANEL+MG SQ Report Release d Date/Time: Jul 31, 2021 10:07 AM M.PREDICTE Reporting La b: [facility] D [VOLUME [email or web address] [facility] [place] [address] RATE/AREA] Performing L ab: [facility] IN SERUM, ONE [email or web address] [facility] [address] PLASMA OR BLOOD BY CREATININE -BASED FORMULA (CKD-EPI) BASIC CREATININE 1.0 0.7 - 1.2 07/30 Specimen Ty pe: PLASMA [place] METABOLI [MASS/VOLU /2020 No comment e ntered. IS [facility] ME] IN Ordering Provid er: GREGG GALEANO PANEL+MG SERUM OR Report Releas ed Date/Time: Jul 24, 2021 08:56 AM PLASMA Reporting Lab: [facility] [address] [facility] [place] [address] Performing Lab: [facility] [address] [place] [facility] [address] BASIC UREA 15 8 - 26 07/30 Specimen Type: P DARIAN [place] METABOLI No comment ent ered. IS [facility] C [MASS/VOLU Ordering Pro vider: GREGG GALEANO PANEL+MG ME] IN Report Release d Date/Time: Jul 24, 2021 08:56 AM SERUM OR Reporting Lab: [facility] PLASMA [address] [place] [facility] [address] Performing Lab: [facility] [place] [address] BASIC GLUCOSE 156 74 - 100 07/30 H Specimen Type: PLASMA [place] METABOLI [MASS/VOLU /2020 No comment e ntered. IS [facility] C ME] IN Ordering Provid er: FROYLANGREGG Estrada PANEL+MG SERUM OR Report Releas ed Date/Time: Jul 24, 2021 08:56 AM PLASMA Reporting Lab: [facility] [place] [address] Performing Lab: [facility] [address] BASIC SODIUM 139 136 - 145 07/30 Specimen Type: PLASMA [place] METABOLI [MOLES/VOL No comment e ntered. IS [facility] C UME] IN Ordering Provid er: FROYLANGREGG ANDREWS PANEL+MG SERUM OR Report Releas ed Date/Time: Jul 24, 2021 08:56 AM PLASMA Reporting Lab: [facility] [place] [address] Performing Lab: [facility] [place] [address] BASIC POTASSIUM 3.0 3.5 - 5.1 07/30 L Specimen Typ e: PLASMA [place] METABOLI [MOLES/VOL /2020 No comment e ntered. IS [facility] C UME] IN Ordering Provid er: FROYLANGREGG ANDREWS M PANEL+MG SERUM OR Report Releas ed Date/Time: Jul 24, 2021 08:56 AM PLASMA Reporting Lab: [facility] [place] [address] Performing Lab: [facility] [place] [address] BASIC CHLORIDE 101 98 - 107 07/30 Specimen Type: PLASMA [place] METABOLI [MOLES/VOL No comment e ntered. IS [facility] C UME] IN Ordering Provid er: FROYLANGREGG ANDREWS M PANEL+MG SERUM OR Report Releas ed Date/Time: Jul 24, 2021 08:56 AM PLASMA Reporting Lab: [facility] [place] [address] Performing Lab: [facility] [address] [place] [address] BASIC CARBON 26 22 - 29 07/30 Specimen Type: P LASMA [place] METABOLI DIOXIDE, /2020 No comment ent ered. IS [facility] C TOTAL Ordering Provid er: FROYLANGREGG Estrada M PANEL+MG [MOLES/VOL Report Rele ased Date/Time: Jul 24, 2021 08:56 AM UME] IN Reporting Lab: [facility] SERUM OR ONE [facility] [place] [facility] [address] PLASMA Performing Lab: [facility] [address] BASIC CALCIUM 9.0 8.4 - 10.2 07/30 Specimen Type : PLASMA [place] METABOLI [MASS/VOLU /2020 No comment e ntered. IS [facility] C ME] IN Ordering Provid er: FROYLANALEXA EstradaTH M PANEL+MG SERUM OR Report Releas ed Date/Time: Jul 24, 2021 08:56 AM PLASMA Reporting Lab: [facility] [place] [address] Performing Lab: [facility] [place] [address] BASIC MAGNESIUM 1.4 1.6 - 2.6 07/30 L Specimen Typ e: PLASMA [place] METABOLI [MASS/VOLU /2020 No comment e ntered. IS [facility] C ME] IN Ordering Provid er: FROYLANGREGG ANDREWS M PANEL+MG SERUM OR Report Releas ed Date/Time: Jul 24, 2021 08:56 AM PLASMA Reporting Lab: [facility] [address] [place] [facility] [place] [address] Performing Lab: [facility] [address] [place] [facility] [address] BASIC ANION GAP 12 5 - 15 07/30 Specimen Type: PLASMA [place] METABOLI IN SERUM /2020 No comment ent ered. IS [facility] C OR PLASMA Ordering Prov ider: FROYLANALEXA EstradaTH M PANEL+MG Report Release d Date/Time: Jul 24, 2021 08:56 AM Reporting Lab: [facility] [address] [place] [facility] [place] [address] Performing Lab: [facility] [address] [place] [facility] [address] BASIC GLOMERULAR 73 60 07/30 Specimen Type : PLASMA [place] METABOLI FILTRATION /2020 No comment e ntered. IS [facility] C RATE/1.73 Ordering Prov ider: GREGG GALEANO PANEL+MG SQ Report Release d Date/Time: Jul 24, 2021 08:56 AM BELEN Reporting La b: [facility] D [VOLUME ONE [facility] [address] RATE/AREA] Performing L ab: [facility] IN SERUM, [facility] [address] PLASMA OR BLOOD BY CREATININE -BASED FORMULA (CKD-EPI) HEMOGLOB HEMOGLOBIN 6.7 4.0 - 6.0 07/30 H Specimen T ype: BLOOD [place] IN A1C A1C/HEMOGL /2020 No comment en tered. IS [facility] OBIN.TOTAL Ordering Pro vider: GREGG GALEANO IN BLOOD Report Release d Date/Time: Jul 24, 2021 08:56 AM Reporting Lab: [facility] [address] [place] [facility] [place] [address] Performing Lab: [facility] [address] [place] [facility] [address] OCCULT HEMOGLOBIN Negative 05/07 Specimen Typ e: FECES [place] BLOOD .GASTROINT /2020 No comment en tered. IS [facility] FIT X1 ESTINAL.LO Ordering Pro vider: GREGG GALEANO SCREEN WER Report Released Date/Time: Apr 24, 2021 11:53 AM [PRESENCE] Reporting La b: [facility] IN STOOL [address] [facility] [address] BY Performing Lab: [facility] IMMUNOASSA ONE [facility] [address] Y --1ST SPECIMEN Vital Signs Combined list of inpatient and outpatient Vital Signs from Department of Defense and Veterans Affairs, ranging from 12 months to all on record, depending upon the facility. Vital Sign Value Date Comments Source SYSTOLIC BLOOD PRESSURE 132 05/15/2022 11:19:58 [facility] DIASTOLIC BLOOD PRESSURE 74 05/15/2022 11:19:58 [facility] PULSE OXIMETRY 96% 05/15/2022 11:19:58 [facility] WEIGHT 187.6 05/15/2022 11:19:58 [place] [facility] BMI 29kg/m2 05/15/2022 11:19:58 [place] [facility] PAIN 0 05/15/2022 11:19:58 [place] [facility] TEMPERATURE 97.7 05/15/2022 11:19:58 [place] [facility] PULSE 93 05/15/2022 11:19:58 [place] [facility] RESPIRATION 18 05/15/2022 11:19:58 [place] [facility] Encounters Combined list of: 1) Encounters from Department of Veterans Affairs facilities going back up to the last 18 months. 2) Encounters from the Department of Defense facilities going back up to 280 months. Location Location Encounter Encounter Reason Attending ADM [place] Stat us Disposition Source Details Type Number For Provider Date Date Visit Outpatient [id number] CARLOS BATISTA 03/17 [place] En[place] [id number] [facility] [id number] 04/22 [place] Encounter [id number] [place] [facility] Outpatient [id number] 04/22 [place] Encounter [id number] [facility] OFFICE O/P [id number] Diagnos FROYLAN,E 04/22 [place] NEW LOW [id number] is: MARKEL IS [facility] 30-44 MIN ICD-10- HCS CM E11.9 Type 2 diabete s mellitu s without complic ations< br/>wit h Provide r Comment s: Diabete s Mellitu s Type 2 (SCT [id number] 6) Outpatient [id number] 04/22 [place] Encounter [id number] /2020 [place] [facility] Outpatient [id number] / [place] Encounter [id number] [place] [facility] Outpatient [id number] FROYLAN,E 07/10 [place] Encounter [id number] MARKEL [place] [facility] Outpatient [id number] 09/ [place] Encounter [id number] [place] [place] [address]-6.61 Diagnos ROSITA,STEP 07/23 [place] DIG [id number] is: HANIE [place] [facility] ASSMT&MGMT ICD-10- HCS 5-10 CM E11.9 Type 2 diabete s mellitu s without complic ations< br/>wit h Provide r Comment s: Diabete s Mellitu s Type 2 (SCT [id number] 6) Outpatient [id number] Diagnos FROYLAN,E 07/31 [place] Encounter [id number] is: MARKEL [place] ICD-10- HCS CM E11.9 Type 2 diabete s mellitu s without complic ations< br/>wit h Provide r Comment s: Diabete s Mellitu s Type 2 (SCT [id number] 6) IMMUNIZATI [id number] Diagnos TRNLINA RAYA 08/20 [place] ADMIN [id number] is: KURT W [place] V A ICD-10- HCS CM Z23 Encount er for immuniz ation<b r/>with Provide r Comment s: Encount er for Immuniz ation Outpatient [id number] 05 RADHA NA Encounter [id number] HEALT H 399 Outpatient [id number] 03/16 [place] Encounter [id number] /2021 [place] [facility] Outpatient [id number] 05/ [place] Encounter [id number] /2021 [facility] 57307-1.61 05 [place] Encounter [id number] /2021 [place] [facility] Outpatient [id number] 04/23 [place] Encounter [id number] /2021 [place] [facility] OFFICE O/P [id number] Diagnos FROYLAN,E 05/15 [place] EST MOD [id number] is: MARKEL [place] [facility] 30-39 MIN ICD-10- HCS CM E11.9 Type 2 diabete s mellitu s without complic ations< br/>wit h Provide r Comment s: Diabete s Mellitu s Type 2 (SCT [id number] 6) Outpatient [id number] 05/25 [place] Encounter [id number] /2021 [facility] Outpatient [id number] 05/29 [place] Encounter [id number] [facility] Outpatient [id number] CHANTEL, 06/05 [place] Encounter [id number] AMITA A /2021 [place] [facility] Outpatient [id number] 06/08 [place] Encounter [id number] [facility] Social History Combined list of available smoking, tobacco, and other social history [facility]. Social History Type Response Date Comment Source Tobacco smoking status NV-TOBACCO NEVER USED 05/15/2022 [facility] NHIS History of tobacco use NV-TOBACCO NEVER USED 04/22/2021 [facility]
--- OUTSIDE RECORDS SUMMARY | 2022-09-14 12:04 | XMS_ITS | Clinical Summary ---
:1945 Author Organization [employer] [facility] [employer] [facility] [place] [address] Care Team Providers Name Role Phone Neptali Cevallos MD Primary Care Provider Allergies Active Allergy Reactions Severity Noted Date [...] Take 1 capsule 0 03/27/2019 Acti ve C,N-Rm-uzuhw-lutein-ze by mouth 2 times axan (PRESERVISION daily. AREDS-2) capsule medication order Bard 14 Fr. 150 Each 11 09/05/2019 Active composerIndications: Urological Chronic prostatitis Catheter Tiemann Model Coude Tip Ref # [id number], 5x/day as needed doxazosin (CARDURA) 4 Take [...] Encounters Date Type Specialty Care Team Description 09/10/2022 Orders Only Scanner <No scans attac hed> 09/10/2022 Orders Only Scanner <No scans attac hed> 09/10/2022 Orders Only Scanner <No scans attac hed> 07/30/2022 Telephone Neptali Cevallos, Err or-please disregard 07/28/2022 Refill Neptali Cevallos, Ref ill Request (Doxazosin) from Last 3 Months Immunizations Name Administration Dates Next Due Amb Influenza, Inact (High-dose) (Flu 09/18/2016 Clinic Only) COVID-19 vaccine (Bioparaiso 03/16/2022 30mcg/0.3mL) 12YO+ SATISH-SUCROSE PF, MDV COVID-19 vaccine (Bioparaiso 08/20/2021, 01/31/2021, 30mcg/0.3mL) PF, MDV Influenza, High-dose [...] 03/16/2022 8:17 AM CDT Plan of Treatment Upcoming Encounters Date Type Specialty Care Team Description 09/29/2022 Office Visit Neptali Cevallos MD [address] [place], [place] [phone] (Wo rk) Health Maintenance Due Date Last Done Comments [...] , 50+ 04/05/2013 Tdap Completed 04/22/2021, 07/08/2011 Procedures Procedure Name Priority Date/Time Associated Comments Diagnosis SCAN-LABORATORY REPORT 09/10/2022 12:00 R esults for this AM CDT procedure are i n the results section. SCAN-CT INTERPRETATION 09/10/2022 12:00 AM CDT SCAN-RADIOLOGY REPORT 09/10/2022 12:00 Re sults for this AM CDT procedure are i n the results section. from Last 3 Months Results SCAN-RADIOLOGY REPORT (09/10/2022 12:00 AM CDT) Narrative This result has an attachment that is no t available. Scanner OTHER SCAN-LABORATORY REPORT (09/10/2022 12:00 AM CDT) Narrative This result has an attachment that is no t available. Scanner OTHER SCAN-CT INTERPRETATION (09/10/2022 12:00 AM CDT) Narrative This result has an attachment that is no t available. Scanner OTHER from Last 3 Months Insurance Payer Benefit Plan / Subscriber ID Effective Dates Phone Addre ss Type Group HUMANDaniella MARIN HUMANDaniella CHOICE [id number] 2020-Present [address] [address] [place] [address] Care Teams Regional [employer] Relationship Specialty Start Date End Date Neptali Cevallos MD PCP - General 03/23/06 [address] [place] [address]
== END 2022-09-14 13:37 | disposition home or self-care (01) ==
PROVIDERS: Emergency Provider Family Medicine; PCP Family Medicine
DX: R33.9 Retention of urine, unspecified (principal)
CPT/HCPCS: 81001; 99283